=== PATIENT | male | born 1990 | race Caucasian/White ===

== ENCOUNTER 2019-05-07 22:05 | Emergency (ER) | payer SELFPAY ==
[~2019-05-07] VITALS: Ht 193 cm; Wt 97.7 kg
[2019-05-07 22:05] VITALS: BP 178/102
[~2019-05-07 22:05] MED LIST: NO HOME MEDS; [UNRECOGNIZED DRUG - OTHER] TOPICAL
[2019-05-08] MEDS ORDERED: ANEC4CRE3 TOP (22:46)
[2019-05-08] MEDS ORDERED: BACT800T5 PO (22:46)
== END 2019-05-07 23:49 | disposition left against medical advice (07) ==
LOC: M ED 22:05
DX: Z53.29 Procedure and treatment not carried out because of patient's decision for other reasons (principal)

== ENCOUNTER 2019-05-08 17:04 | Emergency (ER) | payer SELFPAY ==
[~2019-05-08] VITALS: Ht 193 cm; Wt 93.1 kg
[2019-05-08 17:04] VITALS: BP 149/94
[2019-05-08] MEDS ORDERED: ANEC4CRE3 TOP (22:46)
[2019-05-08] MEDS ORDERED: BACT800T5 PO (22:46)
== END 2019-05-08 19:10 | disposition left against medical advice (07) ==
LOC: M ED 17:04
DX: Z53.29 Procedure and treatment not carried out because of patient's decision for other reasons (principal)

== ENCOUNTER 2019-05-08 22:13 | Emergency (ER) | payer SELFPAY ==
[~2019-05-08] VITALS: Ht 193 cm; Wt 90.9 kg
[2019-05-08 22:14] VITALS: BP 131/84
[2019-05-08] MEDS ORDERED: BACTRIM 160MG/800MG DS TAB PO ONE (22:45)
[2019-05-08] MEDS ORDERED: BACT800T5 PO (22:46)
[2019-05-08] MEDS ORDERED: ANEC4CRE3 TOP (22:46)
[2019-05-08 22:58] LABS: BASO % 0.1 % (0.0-1.0); EOS # 0.1 10^3/uL (0.0-0.5); HEMATOCRIT 44.5 % (42.0-52.0); HEMOGLOBIN 15.4 g/dl (13.5-17.5); LYMPH # 1.1 10^3/uL (1.5-5.0); LYMPH % 7.4 % (24.0-44.0); MEAN CORPUSCULAR HEMOGLOBIN 30.1 pg (27.0-33.0); MEAN CORPUSCULAR HGB CONC 34.6 g/dl (32.0-36.5); MEAN CORPUSCULAR VOLUME 87.1 fl (80.0-96.0); MONO # 1.4 10^3/uL (0.0-0.8); MONO % 10.1 % (0.0-5.0); NEUTROPHILS # 11.5 10^3/uL (1.5-8.5); PLATELET COUNT, AUTOMATED 235 10^3/uL (150-450); RED BLOOD COUNT 5.11 10^6/uL (4.30-6.10); WHITE BLOOD COUNT 14.2 10^3/uL (4.0-10.0)
[2019-05-08 23:31] LABS: ERYTHROCYTE SEDIMENTATION RATE 27 mm/hr (0-15)
== END 2019-05-08 23:17 | disposition home or self-care (01) ==
LOC: M ED 22:13
DX: L03.115 Cellulitis of right lower limb (principal); L03.317 Cellulitis of buttock; Z88.5 Allergy status to narcotic agent; F11.20 Opioid dependence, uncomplicated; F17.210 Nicotine dependence, cigarettes, uncomplicated

== ENCOUNTER 2019-06-01 12:02 | Emergency (ER) | payer MEDICAID, SELFPAY ==
[~2019-06-01] VITALS: Ht 193 cm; Wt 99.1 kg
[~2019-06-01 12:02] MED LIST changes: +ANEC4CRE3 TOP; +BACT800T5 PO
[2019-06-01] MEDS ORDERED: PERC5TAB12 (12:10)
[2019-06-01] MEDS ORDERED: CLIN300C5 (12:10)
[2019-06-01] MEDS ORDERED: IBUP200T45 PO (13:02)
[2019-06-01] MEDS ORDERED: CLINDAMYCIN 900 MG in IV 1 EA IV ONE (13:15)
[2019-06-01 13:42] LABS: HEMATOCRIT 41.5 % (42.0-52.0); HEMOGLOBIN 13.9 g/dl (13.5-17.5); MEAN CORPUSCULAR HEMOGLOBIN 30.2 pg (27.0-33.0); MEAN CORPUSCULAR HGB CONC 33.5 g/dl (32.0-36.5); MEAN CORPUSCULAR VOLUME 90.2 fl (80.0-96.0); PLATELET COUNT, AUTOMATED 235 10^3/uL (150-450)
[2019-06-01 13:59] LABS: BLOOD UREA NITROGEN 11 MG/DL (7-18); CALCIUM LEVEL 8.4 MG/DL (8.5-10.1); CARBON DIOXIDE LEVEL 23 MEQ/L (21-32); CHLORIDE LEVEL 108 MEQ/L (98-107); CREATININE FOR GFR 0.85 MG/DL (0.70-1.30); GLOMERULAR FILTRATION RATE > 60.0 (>60); GLUCOSE, FASTING 100 MG/DL (70-100); POTASSIUM SERUM 3.9 MEQ/L (3.5-5.1); SODIUM LEVEL 139 MEQ/L (136-145)
[2019-06-01 14:17] VITALS: BP 141/85
== END 2019-06-01 14:38 | disposition home or self-care (01) ==
LOC: M ED 12:02
DX: L03.211 Cellulitis of face (principal); Z86.14 Personal history of Methicillin resistant Staphylococcus aureus infection; Z88.5 Allergy status to narcotic agent; F17.210 Nicotine dependence, cigarettes, uncomplicated

== ENCOUNTER 2019-07-13 17:41 | Emergency (ER) | payer MEDICAID ==
[~2019-07-13] VITALS: Ht 193 cm; Wt 89.4 kg
[~2019-07-13 17:41] MED LIST changes: +CLIN300C5; +IBUP200T45 PO; +PERC5TAB12
[2019-07-13 17:43] VITALS: BP 148/87
== END 2019-07-13 21:05 | disposition left against medical advice (07) ==
LOC: M ED 17:41
DX: Z53.21 Procedure and treatment not carried out due to patient leaving prior to being seen by health care provider (principal)

== ENCOUNTER 2019-07-30 23:37 | Emergency (ER) | payer MEDICAID ==
[~2019-07-30] VITALS: Ht 193 cm; Wt 100.0 kg
[2019-07-31] MEDS ORDERED: CLINDAMYCIN 600 MG in IV 1 EA IV ONE (00:30)
[2019-07-31] MEDS ORDERED: VANCOMYCIN HCL 1,000 MG in IV FLUID PLACE HOLDER 1 EA IV ONE (00:30)
[2019-07-31] MEDS ORDERED: NS 1,000 ML IV ONE (00:30)
[2019-07-31 00:49] LABS: BASO % 0.2 % (0.0-1.0); EOS # 0.1 10^3/uL (0.0-0.5); EOS % 0.5 % (0.0-3.0); HEMATOCRIT 39.4 % (42.0-52.0); HEMOGLOBIN 14.1 g/dl (13.5-17.5); LYMPH # 1.7 10^3/uL (1.5-5.0); LYMPH % 11.1 % (24.0-44.0); MEAN CORPUSCULAR HEMOGLOBIN 30.9 pg (27.0-33.0); MEAN CORPUSCULAR HGB CONC 35.8 g/dl (32.0-36.5); MEAN CORPUSCULAR VOLUME 86.2 fl (80.0-96.0); MONO # 1.1 10^3/uL (0.0-0.8); MONO % 6.9 % (0.0-5.0); NEUTROPHILS # 12.6 10^3/uL (1.5-8.5); PLATELET COUNT, AUTOMATED 344 10^3/uL (150-450); RED BLOOD COUNT 4.57 10^6/uL (4.30-6.10); WHITE BLOOD COUNT 15.5 10^3/uL (4.0-10.0)
[2019-07-31] MEDS ORDERED: VANCOMYCIN HCL 1,000 MG, VIAL MATE ADAPTER 1 EACH in D5W 250 ML IV ONE (01:00)
[2019-07-31 01:18] LABS: ERYTHROCYTE SEDIMENTATION RATE 27 mm/hr (0-15)
[2019-07-31] MEDS ORDERED: BACT800T5 PO (01:26)
[2019-07-31 02:17] VITALS: BP 150/93
== END 2019-07-31 02:24 | disposition home or self-care (01) ==
LOC: M ED 23:37
DX: F11.10 Opioid abuse, uncomplicated (principal); B95.62 Methicillin resistant Staphylococcus aureus infection as the cause of diseases classified elsewhere; Z88.5 Allergy status to narcotic agent; F17.210 Nicotine dependence, cigarettes, uncomplicated
CPT/HCPCS: 80047; 83605; 85025; 85652; 86140; 87040; 96365; 96367; 99284; J3370

== ENCOUNTER 2019-08-28 23:41 | Emergency (ER) | payer OTHER ==
[~2019-08-28] VITALS: Ht 193 cm; Wt 89.2 kg
[2019-08-29] MEDS ORDERED: KETOROLAC 30 MG/ML 1ML VIAL (J1885 PER 15MG) IV ONE (00:30)
[2019-08-29 00:47] LABS: BASO % 0.3 % (0.0-1.0); EOS # 0.1 10^3/uL (0.0-0.5); HEMATOCRIT 37.3 % (42.0-52.0); HEMOGLOBIN 13.3 g/dl (13.5-17.5); LYMPH % 15.1 % (24.0-44.0); MEAN CORPUSCULAR HEMOGLOBIN 31.1 pg (27.0-33.0); MEAN CORPUSCULAR HGB CONC 35.7 g/dl (32.0-36.5); MEAN CORPUSCULAR VOLUME 87.1 fl (80.0-96.0); MONO # 1.1 10^3/uL (0.0-0.8); MONO % 8.4 % (0.0-5.0); NEUTROPHILS # 10.1 10^3/uL (1.5-8.5); NEUTROPHILS % 74.9 % (36.0-66.0); PLATELET COUNT, AUTOMATED 250 10^3/uL (150-450); RED BLOOD COUNT 4.28 10^6/uL (4.30-6.10); WHITE BLOOD COUNT 13.5 10^3/uL (4.0-10.0)
[2019-08-29 01:17] LABS: ALBUMIN 3.5 GM/DL (3.2-5.2); ALT/SGPT 84 U/L (12-78); BILIRUBIN,DIRECT 0.2 MG/DL (0.0-0.2); BILIRUBIN,TOTAL 0.6 MG/DL (0.2-1.0); BLOOD UREA NITROGEN 18 MG/DL (7-18); CALCIUM LEVEL 8.5 MG/DL (8.5-10.1); CARBON DIOXIDE LEVEL 28 MEQ/L (21-32); CHLORIDE LEVEL 100 MEQ/L (98-107); CK-MB VALUE MASS 1.8 NG/ML (<3.6); CPK CREATINE PHOSPHOKINASE 83 U/L (39-308); CREATININE FOR GFR 0.79 MG/DL (0.70-1.30); GLOMERULAR FILTRATION RATE > 60.0 (>60); GLUCOSE, FASTING 154 MG/DL (70-100); LIPASE 33 U/L (73-393); MB/CK RELATIVE INDEX 2.17 (< OR =4); POTASSIUM SERUM 3.8 MEQ/L (3.5-5.1); SODIUM LEVEL 134 MEQ/L (136-145); TOTAL PROTEIN 7.5 GM/DL (6.4-8.2); TROPONIN I < 0.02 NG/ML (< 0.10)
[2019-08-29 01:18] LABS: ERYTHROCYTE SEDIMENTATION RATE 38 mm/hr (0-15)
[2019-08-29 01:29] LABS: INR 1.19; PARTIAL THROMBOPLASTIN TIME 33.4 SECONDS (25.0-38.4); PROTHROMBIN TIME 14.8 SECONDS (11.8-14.0)
[2019-08-29 01:32] LABS: D-DIMER QUANT 1296.68 ng/ml (<500)
--- NOTE | 2019-08-29 01:51 | REP ---
Clinical: Acute chest pain . Comparison: None . Findings: The mediastinum and cardiac silhouette are stable and within normal limits for portable technique. The lung frye are clear without acute consolidation, effusion, or pneumothorax. Skeletal structures are intact. Impression: No acute cardiopulmonary process appreciated. Electronically Signed by Bossman Vera MD 08/29/2019 01:42 A
[2019-08-29] MEDS ORDERED: ISOVUE-370 76% 100ML VIAL (Q9967) As Ordered ONE (02:27)
--- NOTE | 2019-08-29 03:01 | REPVR ---
PROCEDURE INFORMATION: Exam: CT Angiography Chest With Contrast Exam date and time: 08/29/2019 1:39 AM Age: 29 years old Clinical indication: Shortness of breath; Additional info: Sob/cp TECHNIQUE: Imaging protocol: Computed tomographic angiography of the chest with intravenous contrast. 3D rendering: MIP and/or 3D reconstructed images were created by the technologist. Radiation optimization: All CT scans at this facility use at least one of these dose optimization techniques: automated exposure control; mA and/or kV adjustment per patient size (includes targeted exams where dose is matched to clinical indication); or iterative reconstruction. Contrast material: ISO; Contrast volume: 75 ml; Contrast route: AC; COMPARISON: CR PORTABLE CHEST X-RAY 08/29/2019 12:37 AM FINDINGS: Pulmonary arteries: No central pulmonary embolism is seen. Evaluation of peripheral pulmonary arteries is limited due to excessive motion. Aorta: Unremarkable. No aortic aneurysm. No aortic dissection. Lungs: Unremarkable. No consolidation. No masses. Pleural space: Small right pleural effusion. Heart: Unremarkable. No cardiomegaly. No pericardial effusion. Lymph nodes: Unremarkable. No enlarged lymph nodes. Bones/joints: Unremarkable. No acute fracture. Soft tissues: Unremarkable. IMPRESSION: 1. No central pulmonary embolism is seen. Evaluation of peripheral pulmonary arteries is limited due to excessive motion. 2. Small right pleural effusion. Electronically signed by: Bhanu Chapman On 08/29/2019 03:00:50 AM
[2019-08-29 03:53] VITALS: BP 109/79
--- NOTE | 2019-08-30 03:19 | ECGEPIP ---
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
== END 2019-08-29 04:03 | disposition home or self-care (01) ==
LOC: M ED 23:41
DX: J06.9 Acute upper respiratory infection, unspecified (principal); B34.8 Other viral infections of unspecified site; F17.218 Nicotine dependence, cigarettes, with other nicotine-induced disorders; R05 Cough; R50.9 Fever, unspecified; Z88.5 Allergy status to narcotic agent
CPT/HCPCS: 71045; 71275; 80048; 80076; 82550; 82553; 83605; 83690; 85025; 85379; 85610; 85652; 85730; 86140; 87040; 87486; 87581; 87633; 87798; 93005; 93041; 94760; 96372; 99285; J1885; Q9967

== ENCOUNTER 2019-09-02 16:43 | Emergency (ER) | payer OTHER ==
[~2019-09-02] VITALS: Ht 193 cm; Wt 90.9 kg
[2019-09-02] MEDS ORDERED: NS 1,000 ML IV ONE (17:15)
[2019-09-02] MEDS ORDERED: KETOROLAC 30 MG/ML 1ML VIAL IV ONE (17:30)
[2019-09-02 17:51] LABS: BASO % 0.3 % (0.0-1.0); EOS # 0.1 10^3/uL (0.0-0.5); EOS % 0.6 % (0.0-3.0); HEMATOCRIT 36.4 % (42.0-52.0); HEMOGLOBIN 12.9 g/dl (13.5-17.5); LYMPH # 1.9 10^3/uL (1.5-5.0); LYMPH % 13.8 % (24.0-44.0); MEAN CORPUSCULAR HEMOGLOBIN 30.2 pg (27.0-33.0); MEAN CORPUSCULAR HGB CONC 35.4 g/dl (32.0-36.5); MEAN CORPUSCULAR VOLUME 85.2 fl (80.0-96.0); MONO # 1.1 10^3/uL (0.0-0.8); MONO % 8.3 % (0.0-5.0); NEUTROPHILS # 10.4 10^3/uL (1.5-8.5); NEUTROPHILS % 76.6 % (36.0-66.0); PLATELET COUNT, AUTOMATED 290 10^3/uL (150-450); RED BLOOD COUNT 4.27 10^6/uL (4.30-6.10); WHITE BLOOD COUNT 13.6 10^3/uL (4.0-10.0)
[2019-09-02 18:08] LABS: ERYTHROCYTE SEDIMENTATION RATE 55 mm/hr (0-15)
[2019-09-02 18:20] LABS: ALBUMIN 3.2 GM/DL (3.2-5.2); ALT/SGPT 64 U/L (12-78); BILIRUBIN,TOTAL 0.6 MG/DL (0.2-1.0); BLOOD UREA NITROGEN 16 MG/DL (7-18); CALCIUM LEVEL 8.4 MG/DL (8.5-10.1); CARBON DIOXIDE LEVEL 29 MEQ/L (21-32); CHLORIDE LEVEL 101 MEQ/L (98-107); CK-MB VALUE MASS 2.1 NG/ML (<3.6); CPK CREATINE PHOSPHOKINASE 97 U/L (39-308); GLOMERULAR FILTRATION RATE > 60.0 (>60); GLUCOSE, FASTING 100 MG/DL (70-100); MB/CK RELATIVE INDEX 2.16 (< OR =4); POTASSIUM SERUM 4.1 MEQ/L (3.5-5.1); SODIUM LEVEL 136 MEQ/L (136-145); TOTAL PROTEIN 7.7 GM/DL (6.4-8.2); TROPONIN I < 0.02 NG/ML (< 0.10)
[2019-09-02 19:45] VITALS: BP 133/76
[2019-09-02 20:35] LABS: AMPHETAMINES LEVEL URINE POSITIVE (NEGATIVE); BARBITURATES URINE NEGATIVE (NEGATIVE); BENZODIAZEPINES URINE NEGATIVE (NEGATIVE); CANNABINOIDS URINE POSITIVE (NEGATIVE); COCAINE METABOLITE URINE NEGATIVE (NEGATIVE); METHADONE URINE NEGATIVE (NEGATIVE); OPIATES URINE POSITIVE (NEGATIVE); PHENCYCLIDINE URINE NEGATIVE (NEGATIVE)
--- NOTE | 2019-09-03 07:38 | REP ---
CHEST, SINGLE VIEW: There is no evidence of acute infiltrate. No pleural effusion is seen. The heart is normal in size. The mediastinal silhouette is unremarkable. The visualized osseous structures are intact. IMPRESSION: No acute pulmonary disease. Electronically Signed by Jean-Paul Potts MD 09/03/2019 05:12 P
--- NOTE | 2019-09-03 07:50 | ECHO ---
DATE OF STUDY: 09/02/2019 DATE OF : 1990 AGE: 29 REFERRING PROVIDER: Romana Augustine PATIENT LOCATION: Emergency room. CLINICAL INDICATION: Chest pain. 2-D MEASUREMENTS: LA: 3.3 cm Aorta: 3.3 cm IVS: 1.1 cm LVPW: 1.1 cm LV: 5.4 cm IVC: 3.0 cm DOPPLER MEASUREMENTS: Peak velocity across the aortic valve: 1.4 m/s Peak velocity across the LVOT: 1.0 m/s Mitral E: 0.8 Mitral A: 0.6 Ratio: 1.4 Maximum tricuspid valve velocity: 2.6 m/s 2-D COMMENTS: 1. Normal left ventricular size, wall thickness, and normal global left ventricular systolic function with a hyperdynamic left ventricle. The estimated global left ventricular systolic ejection fraction is 60-65%. 2. Normal left atrium. Normal right atrium and right ventricle. 3. The atrial septum appeared to be normal without evidence of defect or shunt. 4. Normal aortic root. 5. No pericardial effusion seen. 6. Minimally calcified aortic valve with normal leaflet excursion. Normal mitral valve, tricuspid valve, and pulmonic valve. The proximal pulmonary artery branches were not well visualized. 7. The inferior vena cava was dilated, central venous pressure might be elevated. DOPPLER: It detects trace aortic regurgitation, trace mitral regurgitation, trace to mild tricuspid regurgitation, and trace pulmonic regurgitation. The calculated pulmonary artery systolic pressure varies between 30-40 mmHg. Assessment of the left ventricular systolic function was normal. IMPRESSION: 1. Normal global left ventricular systolic function with a hyperdynamic left ventricle. Assessment of the left ventricular diastolic function was normal. 2. Aortic valve sclerosis with trace aortic regurgitation, but no aortic stenosis. 3. Trace mitral regurgitation. 4. Trace to mild tricuspid regurgitation with probably mild pulmonary hypertension. 5. Trace pulmonic regurgitation. 6. The inferior vena cava was dilated, central venous pressure might be elevated.
--- NOTE | 2019-09-03 10:07 | ECGEPIP ---
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
== END 2019-09-02 21:30 | disposition home or self-care (01) ==
LOC: M ED 16:43
DX: R07.89 Other chest pain (principal); R00.0 Tachycardia, unspecified; F11.120 Opioid abuse with intoxication, uncomplicated; F15.10 Other stimulant abuse, uncomplicated; F12.11 Cannabis abuse, in remission; F17.218 Nicotine dependence, cigarettes, with other nicotine-induced disorders; Z88.5 Allergy status to narcotic agent; Z86.14 Personal history of Methicillin resistant Staphylococcus aureus infection
CPT/HCPCS: 71045; 80053; 80307; 82550; 82553; 85025; 85652; 87040; 93005; 93041; 93306; 94760; 96361; 96374; 99285; J1885

== ENCOUNTER 2019-09-05 00:41 | Emergency (ER) | payer OTHER ==
[2019-09-05] MEDS ORDERED: ceFAZolin 1GM VIAL (J0690 PER 500MG) IM ONE (01:15)
[2019-09-05] MEDS ORDERED: BACTRIM 160MG/800MG DS TAB PO ONE (01:15)
[2019-09-05] MEDS ORDERED: BACT800T5 PO (01:17)
[2019-09-05] MEDS ORDERED: AUGM500T34 PO (01:17)
[2019-09-05 01:56] VITALS: BP 153/99
[2019-09-05] MEDS ORDERED: ACETAMINOPHEN TAB 650MG DOSE (2X325MG) As Ordered ONE (09:39)
[2019-09-05] MEDS ORDERED: ACETAMINOPHEN TAB 650MG DOSE (2X325MG) PO ONE (09:45)
== END 2019-09-05 10:32 | disposition home or self-care (01) ==
LOC: EDBD 00:41 → M ED 00:41
DX: L08.9 Local infection of the skin and subcutaneous tissue, unspecified (principal); B18.2 Chronic viral hepatitis C; F11.10 Opioid abuse, uncomplicated; Z88.5 Allergy status to narcotic agent
CPT/HCPCS: 96372; 99284; J0690

== ENCOUNTER 2019-12-06 20:00 | Inpatient (IN) | payer OTHER ==
[~2019-12-06 20:00] MED LIST changes: +AUGM500T34 PO
[2019-12-06] MEDS ORDERED: CEFEPIME 2GM VIAL (MAXIPIME) (J0692 PER 500MG) ONE (20:27)
[2019-12-06] MEDS ORDERED: ACETAMINOPHEN TAB 650MG DOSE (2X325MG) ONE (20:27)
[2019-12-06] MEDS ORDERED: IBUPROFEN 600MG TAB ONE (20:27)
[2019-12-06] MEDS ORDERED: CEFEPIME 2GM VIAL (MAXIPIME) (J0692 PER 500MG) As Ordered ONE (21:27)
[2019-12-06] MEDS ORDERED: ACETAMINOPHEN TAB 650MG DOSE (2X325MG) As Ordered ONE (21:28)
[2019-12-06] MEDS ORDERED: IBUPROFEN 600MG TAB As Ordered ONE (21:28)
[2019-12-07] MEDS ORDERED: NALOXONE INJ 0.4MG/1ML VIAL (J2310 PER 1MG) As Ordered ONE ×2 (10:44→10:49)
[2019-12-07] MEDS ORDERED: NALOXONE INJ 0.4MG/1ML VIAL (J2310 PER 1MG) ONE (10:44)
[2019-12-07] MEDS ORDERED: ONDANSETRON 4MG/2ML VIAL As Ordered ONE (13:04)
[2019-12-07] MEDS ORDERED: ONDANSETRON 4MG/2ML VIAL ONE (13:04)
[2019-12-07] MEDS ORDERED: ENOXAPARIN 40MG/0.4ML SYRINGE (J1650 PER 10MG) As Ordered ONE (13:04)
[2019-12-07] MEDS ORDERED: cefTRIAXone SOD 1GM VIAL (J0696 PER 250MG) ONE (13:04)
[2019-12-07] MEDS ORDERED: ACETAMINOPHEN 650MG ER TAB (TYLENOL ARTHRITIS) ONE (13:04)
[2019-12-07] MEDS ORDERED: cefTRIAXone SOD 1GM VIAL (J0696 PER 250MG) As Ordered ONE (13:04)
[2019-12-07] MEDS ORDERED: ACETAMINOPHEN 650MG ER TAB (TYLENOL ARTHRITIS) As Ordered ONE (13:04)
[2019-12-07] MEDS ORDERED: ENOXAPARIN 40MG/0.4ML SYRINGE (J1650 PER 10MG) ONE (13:04)
[2019-12-07] MEDS ORDERED: VANCOMYCIN 750MG/25ML VIAL ONE (14:32)
[2019-12-07] MEDS ORDERED: VANCOMYCIN 750MG/25ML VIAL As Ordered ONE (14:32)
[2019-12-07] MEDS ORDERED: VANCOMYCIN 1000MG/20ML VIAL As Ordered ONE (14:32)
[2019-12-07] MEDS ORDERED: VANCOMYCIN 1000MG/20ML VIAL ONE (14:32)
== END 2019-12-07 14:45 | disposition left against medical advice (07) | DRG 720 ==
LOC: M ED 20:00 → M MSPAV 12-07 04:46 → M ED 12-07 20:00
PROVIDERS: ADMIT General Practice; ATTEND General Practice
DX: A41.9 Sepsis, unspecified organism (principal); L03.115 Cellulitis of right lower limb; L03.116 Cellulitis of left lower limb; F10.10 Alcohol abuse, uncomplicated; F11.10 Opioid abuse, uncomplicated; F17.200 Nicotine dependence, unspecified, uncomplicated; G92 Toxic encephalopathy

== ENCOUNTER 2020-01-01 22:22 | Inpatient (IN) | payer OTHER ==
[~2020-01-01] VITALS: Ht 193 cm; Wt 93.2 kg
[2020-01-01 23:16] LABS: BASO % 0.2 % (0.0-1.0); EOS % 0.1 % (0.0-3.0); HEMATOCRIT 38.9 % (42.0-52.0); HEMOGLOBIN 14.3 g/dl (13.5-17.5); LYMPH # 0.3 10^3/uL (1.5-5.0); LYMPH % 2.1 % (24.0-44.0); MEAN CORPUSCULAR HGB CONC 36.8 g/dl (32.0-36.5); MEAN CORPUSCULAR VOLUME 81.6 fl (80.0-96.0); MONO # 0.1 10^3/uL (0.0-0.8); MONO % 0.8 % (0.0-5.0); NEUTROPHILS # 13.1 10^3/uL (1.5-8.5); NEUTROPHILS % 96.4 % (36.0-66.0); PLATELET COUNT, AUTOMATED 183 10^3/uL (150-450); RED BLOOD COUNT 4.77 10^6/uL (4.30-6.10); WHITE BLOOD COUNT 13.6 10^3/uL (4.0-10.0)
[2020-01-02] MEDS ORDERED: ACETAMINOPHEN TAB 650MG DOSE (2X325MG) PO ONE
[2020-01-02 00:18] LABS: INR 1.21; PROTHROMBIN TIME 15.6 SECONDS (11.8-14.0)
--- NOTE | 2020-01-02 00:22 | REPVR ---
PROCEDURE INFORMATION: Exam: XR Chest, 1 View Exam date and time: 01/01/2020 11:06 PM Age: 29 years old Clinical indication: Fever and shortness of breath TECHNIQUE: Imaging protocol: XR of the chest Views: 1 view. COMPARISON: 1. CT PORTABLE CHEST X-RAY 09/02/2019 5:[address] ANGIO CHEST 08/29/2019 2:35:40 AM FINDINGS: Lungs: Unremarkable. No consolidation. No pulmonary edema. Pleural space: Unremarkable. No pleural effusion or pneumothorax is identified. Heart/Mediastinum: Unremarkable. No cardiomegaly. Bones/joints: Unremarkable. IMPRESSION: No acute findings. Electronically signed by: Saqib Dobson On 01/02/2020 00:23:09 AM
[2020-01-02 00:31] LABS: ALBUMIN 3.4 GM/DL (3.2-5.2); ALT/SGPT 103 U/L (12-78); BILIRUBIN,DIRECT 0.3 MG/DL (0.0-0.2); BILIRUBIN,TOTAL 0.7 MG/DL (0.2-1.0); BLOOD UREA NITROGEN 13 MG/DL (7-18); C REACTIVE PROTEIN QUANTITATIV 1.11 MG/DL (0.00-0.30); CALCIUM LEVEL 8.7 MG/DL (8.5-10.1); CARBON DIOXIDE LEVEL 28 MEQ/L (21-32); CHLORIDE LEVEL 103 MEQ/L (98-107); CK-MB VALUE MASS < 1.0 NG/ML (<3.6); CPK CREATINE PHOSPHOKINASE 70 U/L (39-308); CREATININE FOR GFR 0.87 MG/DL (0.70-1.30); GLOMERULAR FILTRATION RATE > 60.0 (>60); GLUCOSE, FASTING 117 MG/DL (70-100); MB/CK RELATIVE INDEX 1.43 (< OR =4); POTASSIUM SERUM 2.7 MEQ/L (3.5-5.1); SODIUM LEVEL 139 MEQ/L (136-145); TOTAL PROTEIN 7.6 GM/DL (6.4-8.2); TROPONIN I < 0.02 NG/ML (< 0.10)
[2020-01-02] MEDS ORDERED: KCL 10MEQ/100ML SWI (KRUN) 10 MEQ in IV 1 EA IV ONE (00:45)
[2020-01-02] MEDS ORDERED: POTASSIUM CHLORIDE 10 MEQ SR TABLET PO ONE (00:45)
[2020-01-02] MEDS ORDERED: VANCOMYCIN HCL 1,000 MG, VIAL MATE ADAPTER 1 EACH in D5W 250 ML IV ONE (02:45)
[2020-01-02] MEDS ORDERED: PIPERACILLIN/TAZOBACTAM SOD 4.5 GM in D5W MINI-BAG PLUS 50 ML IV ONE (02:45)
[2020-01-02] MEDS: NS 1,000 ML IV SCH ×2 (03:00→08:32)
[2020-01-02] MEDS ORDERED: NS 1,000 ML IV ONE ×2 (03:00)
[2020-01-02 03:47] LABS: AMPHETAMINES LEVEL URINE POSITIVE (NEGATIVE); BARBITURATES URINE NEGATIVE (NEGATIVE); BENZODIAZEPINES URINE NEGATIVE (NEGATIVE); CANNABINOIDS URINE NEGATIVE (NEGATIVE); COCAINE METABOLITE URINE NEGATIVE (NEGATIVE); METHADONE URINE POSITIVE (NEGATIVE); OPIATES URINE POSITIVE (NEGATIVE); PHENCYCLIDINE URINE NEGATIVE (NEGATIVE)
[2020-01-02] MEDS: ACETAMINOPHEN TAB 650MG DOSE (2X325MG) PO PRN ×2 (08:04→15:25)
[2020-01-02] MEDS: KETOROLAC 30 MG/ML 1ML VIAL IV PRN ×2 (08:04→16:44)
[2020-01-02] MEDS: VANCOMYCIN HCL 1,000 MG, VIAL MATE ADAPTER 1 EACH in D5W 250 ML IV SCH ×2 (08:33→16:32)
[2020-01-02] MEDS ORDERED: BUPRENORPHINE/NALOXONE 8-2MG SUBLINGUAL TABLET(SUBOXONE) SL ONE (09:15)
[2020-01-02] MEDS ORDERED: PILL CUTTER 1 EACH XX ONE (09:21)
[2020-01-02] MEDS: ONDANSETRON 4 MG TAB PO PRN (09:23)
[2020-01-02 10:17] LABS: BASO % 0.2 % (0.0-1.0); EOS % 0.1 % (0.0-3.0); HEMATOCRIT 39.1 % (42.0-52.0); HEMOGLOBIN 13.6 g/dl (13.5-17.5); LYMPH # 0.3 10^3/uL (1.5-5.0); MEAN CORPUSCULAR HEMOGLOBIN 28.9 pg (27.0-33.0); MEAN CORPUSCULAR HGB CONC 34.8 g/dl (32.0-36.5); MEAN CORPUSCULAR VOLUME 83.2 fl (80.0-96.0); MONO # 0.6 10^3/uL (0.0-0.8); MONO % 4.1 % (0.0-5.0); NEUTROPHILS # 14.5 10^3/uL (1.5-8.5); NEUTROPHILS % 93.3 % (36.0-66.0); PLATELET COUNT, AUTOMATED 151 10^3/uL (150-450); WHITE BLOOD COUNT 15.5 10^3/uL (4.0-10.0)
[2020-01-02 10:36] LABS: MAGNESIUM LEVEL 1.6 MG/DL (1.8-2.4)
[2020-01-02 10:42] LABS: BLOOD UREA NITROGEN 13 MG/DL (7-18); C REACTIVE PROTEIN QUANTITATIV 6.42 MG/DL (0.00-0.30); CALCIUM LEVEL 8.2 MG/DL (8.5-10.1); CARBON DIOXIDE LEVEL 27 MEQ/L (21-32); CHLORIDE LEVEL 105 MEQ/L (98-107); CREATININE FOR GFR 0.87 MG/DL (0.70-1.30); GLOMERULAR FILTRATION RATE > 60.0 (>60); GLUCOSE, FASTING 132 MG/DL (70-100); POTASSIUM SERUM 3.5 MEQ/L (3.5-5.1); SODIUM LEVEL 137 MEQ/L (136-145)
[2020-01-02 11:03] LABS: ERYTHROCYTE SEDIMENTATION RATE 29 mm/hr (0-15)
[2020-01-02 11:47] LABS: MONO SCRN NEGATIVE (NEGATIVE)
[2020-01-02 11:48] LABS: HEPATITIS B SURFACE ANTIGEN NEGATIVE (NEGATIVE)
[2020-01-02 12:12] LABS: HEPATITIS A ANTIBODY IGM NEGATIVE (NEGATIVE); HEPATITIS B CORE ANTIBODY IGM NEGATIVE (NEGATIVE); HIV 1&2 SCREEN CENTAUR NEGATIVE (NEGATIVE)
[2020-01-02 13:00] LABS: HEPATITIS C VIRUS ABY INDEX > 11.0 INDEX (<0.8)
[2020-01-02 15:36] VITALS: BP 140/96
[2020-01-02 22:00] VITALS: BP 160/96
[2020-01-03] MEDS: VANCOMYCIN HCL 1,000 MG, VIAL MATE ADAPTER 1 EACH in D5W 250 ML IV SCH ×4 (00:07→17:52)
[2020-01-03] MEDS: KETOROLAC 30 MG/ML 1ML VIAL IV PRN ×3 (00:19→17:52)
[2020-01-03 06:00] VITALS: BP 133/91
[2020-01-03 06:53] LABS: HEMATOCRIT 38.9 % (42.0-52.0); HEMOGLOBIN 13.8 g/dl (13.5-17.5); MEAN CORPUSCULAR HEMOGLOBIN 29.6 pg (27.0-33.0); MEAN CORPUSCULAR HGB CONC 35.5 g/dl (32.0-36.5); MEAN CORPUSCULAR VOLUME 83.3 fl (80.0-96.0); PLATELET COUNT, AUTOMATED 157 10^3/uL (150-450); RED BLOOD COUNT 4.67 10^6/uL (4.30-6.10); WHITE BLOOD COUNT 8.4 10^3/uL (4.0-10.0)
[2020-01-03 07:13] LABS: ALT/SGPT 70 U/L (12-78); BILIRUBIN,DIRECT 0.3 MG/DL (0.0-0.2); BILIRUBIN,TOTAL 0.7 MG/DL (0.2-1.0); BLOOD UREA NITROGEN 14 MG/DL (7-18); CALCIUM LEVEL 8.4 MG/DL (8.5-10.1); CARBON DIOXIDE LEVEL 27 MEQ/L (21-32); CHLORIDE LEVEL 104 MEQ/L (98-107); CREATININE FOR GFR 0.62 MG/DL (0.70-1.30); GLOMERULAR FILTRATION RATE > 60.0 (>60); GLUCOSE, FASTING 109 MG/DL (70-100); POTASSIUM SERUM 3.8 MEQ/L (3.5-5.1); SODIUM LEVEL 136 MEQ/L (136-145); TOTAL PROTEIN 7.2 GM/DL (6.4-8.2)
[2020-01-03] MEDS: BUPRENORPHINE/NALOXONE 2-0.5MG SUBLINGUAL TABLET(SUBOXONE) SL SCH (08:13)
[2020-01-03 08:25] LABS: ERYTHROCYTE SEDIMENTATION RATE 40 mm/hr (0-15)
[2020-01-03 08:43] LABS: ATYPICAL LYMPH 2 % (0-5); LYMPHOCYTES 6 % (16-44); MONOCYTES 6 % (0-5); NEUTROPHILS 86 % (28-66); PLATELET ESTIMATE NORMAL (NORMAL)
[2020-01-03] MEDS: MICAFUNGIN SODIUM 100 MG in D5W MINI-BAG PLUS 100 ML IV SCH (09:55)
--- NOTE | 2020-01-03 12:20 | IPNPDOC ---
Subjective Date Seen The patient was seen on 01/03/20. Subjective Chief Complaint/HPI pt sleepy but no withdrawl symptoms today, Offers no new complaints General: Denies: ROS Unobtainable, Chills, Night Sweats, Fatigue, Malaise, Normal Appetite, Other Symptoms Constitutional: Denies: Chills, Fever, Malaise, Night Sweats, Weakness, Fatigue, Weight Loss, Lethargy, Other Pulmonary: Denies: Dyspnea, Cough, Pleuritic Chest Pain, Other Symptoms Cardiovascular: Denies: Chest Pain, Palpitations, Orthopnea, Paroxysmal Noc. Dyspnea, Edema, Lt Headedness, Other Symptoms Gastrointestinal: Denies: Nausea, Vomiting, Abdominal Pain, Diarrhea, Constipation, Melena, Hematochezia, Other Symptoms Genitourinary: Denies: Dysuria, Frequency, Incontinence, Hematuria, Retention, Other Symptoms Hematologic: Denies: Bruising, Bleeding Excessively, Petecchia, Purpura, Enlarged Lymph Nodes, Other Hematologic Endocrine: Denies: Polydipsia, Polyphagia, Polyuria, Heat Intolerance, Cold Intolerance, Other Endocrine Sx Musculoskeletal: Denies: Neck Pain, Back Pain, Shoulder Pain, Arm Pain, Hand Pain, Leg Pain, Foot Pain, Joint Pain, Muscle Pain, Spasms, Other Symptoms Neurological: Denies: Weakness, Numbness, Incoordination, Change in speech, Confusion, Seizures, Other Symptoms Objective Physical Examination Chest Exam: Positive: Clear to auscultation Heart Exam: Positive: Rate Normal, Normal S1, Normal S2 Abdomen Exam: Positive: Normal bowel sounds, Soft Extremity Exam: Positive: Normal pulses Skin Exam: Positive: Nl turgor and temperature, Other skin issue (multiple scabs on all over the body in different stages) Assessment /Plan Problems (1) Febrile illness, acute Status: Acute Problem Text: Hx of IVDA and homeless ness Can not R/O SABE in this setting Discussed with Dr Maldonado, he will get BARBARA tomorrow NPO from midnight Continue Zosyn/vanco Dr Ibarra not available till Wednesday Will continue same anti Bx till then Blood cultures show Funus-On mycofungin already (2) Drug abuse Status: Acute Problem Text: Discussed with Dr Kincaid, pt started on Suboxone 4mg daily to prevent withdrwal and pt leaving AMA without tratment for his possible Endocarditis. He is responding vwet well to Suboxone, will call Dr Kincaid again once pt is medically clear as per his instructions. Plan/VTE VTE Prophylaxis Ordered?: Yes VS, I&O, 24H, Fishbone Vital Signs/I&O Vital Signs Date Time Temp Pulse Resp B/P (MAP) Pulse Ox O2 Delivery O2 Flow Rate FiO2 01/03/20 06:00 98.6 74 18 133/91 (105) 100 Room Air I&O- Last 24 Hours up to 6 AM 01/03/20 05:59 Intake Total 2390 ml Output Total 3550 ml Balance -1160 ml Laboratory Data 24H LABS Laboratory Tests 2 01/02/20 22:50: Vancomycin Level Trough 7.9L 01/03/20 06:24: Neutrophils (%) (Auto) , Nucleated Red Blood Cells % (auto) 0.0, Neutrophils 86H, Lymphocytes (Manual) 6L, Monocytes (Manual) 6H, Atypical Lymphocytes 2, Red Blood Cell Morphology NORMAL, Platelet Estimate NORMAL, Erythrocyte Sedimentation Rate 40H, Anion Gap 5L, Glomerular Filtration Rate > 60.0, Calcium Level 8.4L, Magnesium Level 2.0, Total Bilirubin 0.7, Direct Bilirubin 0.3H, Aspartate Amino Transf (AST/SGOT) 51H, Alanine Aminotransferase (ALT/SGPT) 70, Alkaline Phosphatase 101, Total Protein 7.2, Albumin 3.0L, Albumin/Globulin Ratio 0.7 01/03/20 11:39: CBC/BMP Laboratory Tests 01/03/20 06:24 Microbiology Microbiology 01/03/20 Blood Culture, Received Pending 01/01/20 Respiratory Virus Panel (PCR) ([facility]) - Final, Complete 01/01/20 Blood Culture - Preliminary, Resulted 01/01/20 Blood Culture - Preliminary, Resulted DANELLE CHRISTIANSON MD Jan 03, 2020 12:19
[2020-01-03] MEDS: ONDANSETRON 4 MG TAB PO PRN ×2 (13:26→17:52)
[2020-01-03 14:00] VITALS: BP 142/90
[2020-01-03] MEDS ORDERED: VANCOMYCIN HCL 500 MG in D5W MINI-BAG PLUS 100 ML IV ONE (14:00)
[2020-01-03] MEDS: HEPARIN SOD (PORCINE) 5000UNITS/ML 1ML VIAL/SYRINGE SQ SCH ×2 (16:02→21:07)
[2020-01-03 22:00] VITALS: BP 137/56
[2020-01-03] MEDS ORDERED: ONDANSETRON 4MG/2ML VIAL IV ONE (22:45)
[2020-01-04] MEDS: VANCOMYCIN HCL 1,000 MG, VIAL MATE ADAPTER 1 EACH in D5W 250 ML IV SCH ×3 (00:06→12:20)
[2020-01-04] MEDS: KETOROLAC 30 MG/ML 1ML VIAL IV PRN ×2 (00:07→06:30)
[2020-01-04 05:57] LABS: BASO % 0.4 % (0.0-1.0); EOS # 0.2 10^3/uL (0.0-0.5); EOS % 2.6 % (0.0-3.0); HEMATOCRIT 40.8 % (42.0-52.0); HEMOGLOBIN 14.4 g/dl (13.5-17.5); LYMPH # 1.2 10^3/uL (1.5-5.0); LYMPH % 16.5 % (24.0-44.0); MEAN CORPUSCULAR HEMOGLOBIN 29.3 pg (27.0-33.0); MEAN CORPUSCULAR HGB CONC 35.3 g/dl (32.0-36.5); MEAN CORPUSCULAR VOLUME 83.1 fl (80.0-96.0); MONO # 0.9 10^3/uL (0.0-0.8); MONO % 11.6 % (0.0-5.0); NEUTROPHILS # 5.1 10^3/uL (1.5-8.5); NEUTROPHILS % 68.8 % (36.0-66.0); PLATELET COUNT, AUTOMATED 206 10^3/uL (150-450); RED BLOOD COUNT 4.91 10^6/uL (4.30-6.10); WHITE BLOOD COUNT 7.4 10^3/uL (4.0-10.0)
[2020-01-04 06:00] VITALS: BP 131/87
[2020-01-04] MEDS: HEPARIN SOD (PORCINE) 5000UNITS/ML 1ML VIAL/SYRINGE SQ SCH ×2 (06:00→12:20)
[2020-01-04 06:12] LABS: ALBUMIN 3.1 GM/DL (3.2-5.2); ALT/SGPT 75 U/L (12-78); BILIRUBIN,DIRECT 0.2 MG/DL (0.0-0.2); BILIRUBIN,TOTAL 0.5 MG/DL (0.2-1.0); BLOOD UREA NITROGEN 12 MG/DL (7-18); CALCIUM LEVEL 8.7 MG/DL (8.5-10.1); CARBON DIOXIDE LEVEL 28 MEQ/L (21-32); CHLORIDE LEVEL 105 MEQ/L (98-107); CREATININE FOR GFR 0.65 MG/DL (0.70-1.30); GLOMERULAR FILTRATION RATE > 60.0 (>60); GLUCOSE, FASTING 84 MG/DL (70-100); POTASSIUM SERUM 3.9 MEQ/L (3.5-5.1); SODIUM LEVEL 140 MEQ/L (136-145); TOTAL PROTEIN 7.4 GM/DL (6.4-8.2)
[2020-01-04] MEDS: ONDANSETRON 4 MG TAB PO PRN (06:29)
[2020-01-04] MEDS: BUPRENORPHINE/NALOXONE 2-0.5MG SUBLINGUAL TABLET(SUBOXONE) SL SCH (08:18)
[2020-01-04] MEDS: MICAFUNGIN SODIUM 100 MG in D5W MINI-BAG PLUS 100 ML IV SCH (08:18)
--- NOTE | 2020-01-04 10:08 | MHCRPDOC ---
[facility] Consultation Consultation DATE OF CONSULTATION: 01/04/20 Subjective HPI: Patient has met with me for an addiction medication consultation. His primary provider in the hospital had requested it as he was going into opioid withdrawal but has endocarditis of which hes being treated for. His attending provider reported that after Suboxone at my recommendation, the patient has been more amenable with the withdrawal side effects. He has been okay with getting treatment for his endocarditis, of which previously by report, he had been very ambivalent about leaving AMA multiple times. On meeting the patient, he reports that the Suboxone is quite helpful. He is currently in court. Although hes not aligned with drug court at this time, currently not in with any addiction treatment. He has a history of significant addictions of mushrooms, stimulants, opioids, and others. 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 No history of suicides per chart review. SOCIAL HISTORY - SUBSTANCE USE: The patient has a history of heroin use and multiple other substances. Objective Behavior: Mildly sleepy. Able to engage at times. Thought Form: Linear and goal directed. Thought Content: No evidence of delusions. No evidence of suicidal ideation. No thoughts of self harm. No evidence of aggressive or homicidal ideation. Judgement: Fair - limited. Baseline level. Insight: Fair to limited. Baseline level. Assessment F11.20 Opioid dependence, uncomplicated Plan Send Suboxone 4 mg daily, 7-day supply Discussed with patient length about going to our walk-in clinic for assessment and further treatment. Laura decided that its appropriate at this time to give a small supply of Suboxone as his history of opioid use puts them at great danger of overdose and , thus harm reduction is ideal in this situation. Well attempt to link him with the outpatient addiction clinic through walk-in as he reports he is mandated to have an assessment done prior to having his court date. The patient at this time has no suicidal thoughts and does not have any significant psychiatric history and thus is a low risk for suicide. Patient will be treated medically and then charged. He does not meet involuntary criteria for inpatient psychiatric care and is primarily substance use, thus being inappropriate for a voluntary admission. Vital Signs Vital Signs Date Time Temp Pulse Resp B/P (MAP) Pulse Ox O2 Delivery O2 Flow Rate FiO2 01/04/20 06:00 98.5 54 18 131/87 (102) 90 Room Air Laboratory Data 24H Labs Laboratory Tests 2 01/03/20 11:39: Vancomycin Level Trough 10.8 01/04/20 05:38: Vancomycin Level Trough 11.5, Immature Granulocyte % (Auto) 0.1, Neutrophils (%) (Auto) 68.8H, Lymphocytes (%) (Auto) 16.5L, Monocytes (%) (Auto) 11.6H, Eosinophils (%) (Auto) 2.6, Basophils (%) (Auto) 0.4, Neutrophils # (Auto) 5.1, Lymphocytes # (Auto) 1.2L, Monocytes # (Auto) 0.9H, Eosinophils # (Auto) 0.2, Basophils # (Auto) 0.0, Nucleated Red Blood Cells % (auto) 0.0, Anion Gap 7L, Glomerular Filtration Rate > 60.0, Calcium Level 8.7, Total Bilirubin 0.5, Direct Bilirubin 0.2, Aspartate Amino Transf (AST/SGOT) 53H, Alanine Aminotransferase (ALT/SGPT) 75, Alkaline Phosphatase 102, Total Protein 7.4, Alb umin 3.1L, Albumin/Globulin Ratio 0.7 Home Medications Current Medications Current Medications Medications (Trade) Dose Ordered Sig/Any Route PRN Reason Start Time Stop Time Status Last Admin Dose Admin Acetaminophen (Tylenol Tab) 650 mg Q4HP PRN PO PAIN OR FEVER 01/02/20 03:00 01/02/20 15:25 Buprenorphine/ Naloxone (Suboxone 2/ 0.5mg) 2 tab DAILY SL 01/03/20 09:00 01/04/20 08:18 Heparin Sodium (Porcine) (Heparin) 5,000 units Q8H SQ 01/03/20 14:00 Home Med (Med Rec Complete!) ASDIRECTED XX 01/02/20 04:45 01/02/20 04:48 DC Ketorolac Tromethamine (ToRADol) 30 mg Q6HP PRN IV PAIN/FEVER 01/02/20 03:00 01/07/20 02:59 01/04/20 06:30 Micafungin Sodium 100 mg/Dextrose 100 ml @ 100 mls/hr Q24H IV 01/03/20 08:00 01/04/20 08:18 Ondansetron HCl (Zofran) 4 mg Q4HP PRN PO NAUSEA OR VOMITING 01/02/20 09:00 01/04/20 06:29 Sodium Chloride 1,000 ml @ 150 mls/hr Q6H40M IV 01/02/20 03:00 01/02/20 16:19 DC 01/02/20 08:32 Vancomycin HCl 1000 mg/IV Miscellaneous Supplies 1 each/ Dextrose 270 ml @ 270 mls/hr Q6H IV 01/03/20 00:00 01/04/20 06:29 Vancomycin HCl 1000 mg/IV Miscellaneous Supplies 1 each/ Dextrose 270 ml @ 270 mls/hr Q8H IV 01/02/20 08:00 01/02/20 23:42 DC 01/02/20 16:32 Scheduled Buprenorphine HCl/Naloxone HCl (Suboxone 4 mg-1 mg Sl Film) 1 Each Film, 1 STRIP SL DAILY Fluconazole (Diflucan) 100 Mg Tablet, 100 MG PO DAILY for yeast infection Allergies Coded Allergies: codeine (Verified Allergy, Intermediate, face/back swelling, 05/07/19) ZONIA JJ DO Jan 04, 2020 10:08
[2020-01-04] MEDS ORDERED: SUBO4MIS SL (10:33)
--- NOTE | 2020-01-04 13:19 | IPNPDOC ---
Subjective Date Seen The patient was seen on 01/04/20. Subjective Chief Complaint/HPI pt afebrile, in no distress, awaiting BARBARA today General: Denies: ROS Unobtainable, Chills, Night Sweats, Fatigue, Malaise, Normal Appetite, Other Symptoms Constitutional: Denies: Chills, Fever, Malaise, Night Sweats, Weakness, Fatigue, Weight Loss, Lethargy, Other Pulmonary: Denies: Dyspnea, Cough, Pleuritic Chest Pain, Other Symptoms Cardiovascular: Denies: Chest Pain, Palpitations, Orthopnea, Paroxysmal Noc. Dyspnea, Edema, Lt Headedness, Other Symptoms Gastrointestinal: Denies: Nausea, Vomiting, Abdominal Pain, Diarrhea, Const ipation, Melena, Hematochezia, Other Symptoms Genitourinary: Denies: Dysuria, Frequency, Incontinence, Hematuria, Retention, Other Symptoms Hematologic: Denies: Bruising, Bleeding Excessively, Petecchia, Purpura, Enlarged Lymph Nodes, Other Hematologic Endocrine: Denies: Polydipsia, Polyphagia, Polyuria, Heat Intolerance, Cold Intolerance, Other Endocrine Sx Musculoskeletal: Denies: Neck Pain, Back Pain, Shoulder Pain, Arm Pain, Hand Pain, Leg Pain, Foot Pain, Joint Pain, Muscle Pain, Spasms, Other Symptoms Neurological: Denies: Weakness, Numbness, Incoordination, Change in speech, C onfusion, Seizures, Other Symptoms Objective Physical Examination Chest Exam: Positive: Clear to auscultation Heart Exam: Positive: Rate Normal, Normal S1, Normal S2 Abdomen Exam: Positive: Normal bowel sounds, Soft Extremity Exam: Positive: Normal pulses Skin Exam: Positive: Nl turgor and temperature, Other skin issue (multiple scabs on all over the body in different stages) Assessment /Plan Problems (1) Febrile illness, acute Status: Acute Problem Text: Hx of IVDA and homeless ness Can not R/O SABE in this setting Discussed with Dr Maldonado, he will get BARBARA today If BARBARA negative,he might be Dc home on PO anti Bx Continue Zosyn/vanco Dr Ibarra not available till Wednesday Discussed with dr Aguayo, he will make arrangements for out pt suboxone therapy once discharged Blood cultures show Fungus-On mycofungin already (2) Drug abuse Status: Acute Problem Text: Discussed with Dr Kincaid, pt started on Suboxone 4mg daily to prevent withdrwal and pt leaving AMA without tratment for his possible Endoc arditis. Dr Aguayo saw pt toady, will make arrangements for Out pt suboxone treatment on DC Plan/VTE VTE Prophylaxis Ordered?: Yes VS, I&O, 24H, Fishbone Vital Signs/I&O Vital Signs Date Time Temp Pulse Resp B/P (MAP) Pulse Ox O2 Delivery O2 Flow Rate FiO2 01/04/20 06:00 98.5 54 18 131/87 (102) 90 Room Air I&O- Last 24 Hours up to 6 AM 01/04/20 06:00 Intake Total 3745 ml Output Total 4150 ml Balance -405 ml Laboratory Data 24H LABS Laboratory Tests 2 01/04/20 05:38: Immature Granulocyte % (Auto) 0.1, Neutrophils (%) (Auto) 68.8H, Lymphocytes (%) (Auto) 16.5L, Monocytes (%) (Auto) 11.6H, Eosinophils (%) (Auto) 2.6, Basophils (%) (Auto) 0.4, Neutrophils # (Auto) 5.1, Lymphocytes # (Auto) 1.2L, Monocytes # (Auto) 0.9H, Eosinophils # (Auto) 0.2, Basophils # (Auto) 0.0, Nucleated Red Blo od Cells % (auto) 0.0, Anion Gap 7L, Glomerular Filtration Rate > 60.0, Calcium Level 8.7, Total Bilirubin 0.5, Direct Bilirubin 0.2, Aspartate Amino Transf (AST/SGOT) 53H, Alanine Aminotransferase (ALT/SGPT) 75, Alkaline Phosphatase 102, Total Protein 7.4, Albumin 3.1L, Albumin/Globulin Ratio 0.7, Vancomycin Level Trough 11.5 CBC/BMP Laboratory Tests 01/04/20 05:38 Microbiology Microbiology 01/03/20 Blood Culture - Preliminary, Resulted No growth after 24 hours . All specim... 01/01/20 Respiratory Virus Panel (PCR) ([facility]) - Final, Complete 01/01/20 Blood Culture - Preliminary, Resulted Yeast Like Organism 01/01/20 Blood Culture - Preliminary, Resulted Yeast Like Organism DANELLE CHRISTIANSON MD Jan 04, 2020 13:19
[2020-01-04] MEDS ORDERED: LIDOCAINE VISCOUS 2% SOLN 15ML UDC As Ordered ONE (13:46)
[2020-01-04 14:00] VITALS: BP 152/87
[2020-01-04] MEDS ORDERED: MIDAZOLAM INJ 2MG/2ML VIAL (J2250 PER 1MG) As Ordered ONE ×2 (14:47→14:52)
[2020-01-04 15:15] VITALS: BP 151/91
[2020-01-04] MEDS ORDERED: FLUC10TA PO (15:18)
--- NOTE | 2020-01-04 16:37 | DS.PDOC ---
Discharge Summary General Date of Admission Jan 02, 2020 at 02:53 Date of Discharge 01/04/20 Discharge Summary PROCEDURES PERFORMED DURING STAY: [None]. ADMITTING DIAGNOSES: 1. [fever,drug abuse]. DISCHARGE DIAGNOSES: 1. [febrile illness,Opiod withdrawl, Fungemia in blood cultures, Hx of IV drug abuse ] COMPLICATIONS/CHIEF COMPLAINT: Drug Abuse, Fever, Low Back Pain. HISTORY OF PRESENT ILLNESS: [Pt was admitted with febrile illness and symptoms suggestive of opiod withdrawl. Pt is not reliable and has signed out of hospital multiple times in the past.] HOSPITAL COURSE: [Pt was admitted with febrile illness and Opiod withdrawl symptoms such as body and muscke pain and tremors. Hx of IVDA and homeless ness First set of blood cultures showed yeast like organism Second blood cultures negative Pt was started on Vanco/Zosyn and Mycafungin Today he had BARBARA done by Dr Maldonado: Did not show any vegetations Pt has been afebrile since admission, unfortunately ID is not available this week and pt is insistant on leaving today, he threatened to sign out AMA if not discharged. He will be DC home on PO Diflucan and F/U with Dr Ibarra as out pt. He was also seen by Dr Aguayo and suboxone was precribe for use as out pat and F/U with addiction clinic as out pt. ]. DISCHARGE MEDICATIONS: Please see below. ALLERGIES: Please see below. PHYSICAL EXAMINATION ON DISCHARGE: VITAL SIGNS: Please see below. GENERAL: [WNL] HEENT: [THELMA/EOMI] NECK: [Supple] CARDIOVASCULAR EXAMINATION: [S1,S2 reg] RESPIRATORY EXAMINATION: [Clear to A&P] ABDOMINAL EXAMINATION: [Benign] EXTREMITIES: [No CCE] SKIN: [Multiple healing scabs all over the body] NEUROLOGICAL EXAMINATION: [no focal deficit] PSYCHIATRIC EXAMINATION: [Withdrwan] LABORATORY DATA: Please see below. IMAGING: [BARBARA: NO VEGETATION] PROGNOSIS: [fair] ACTIVITY: [As tolerated]. DIET: [as tolerated] DISCHARGE PLAN: [as per Dc instructions] DISPOSITION: 01 Home, Self-Care. DISCHARGE INSTRUCTIONS: 1. [As above]. ITEMS TO FOLLOWUP ON ON OUTPATIENT: 1. [F/u with addiction clinic as out pt]. DISCHARGE CONDITION: [Stable]. TIME SPENT ON DISCHARGE: 38 minutes. Vital Signs/I&Os Vital Signs Date Time Temp Pulse Resp B/P (MAP) Pulse Ox O2 Delivery O2 Flow Rate FiO2 01/04/20 15:15 63 18 151/91 (111) 99 Room Air 01/04/20 15:00 3 01/04/20 14:00 98.6 I&O- Last 24 Hours up to 6 AM 01/04/20 06:00 Intake Total 3745 ml Output Total 4150 ml Balance -405 ml Laboratory Data Labs 24H Laboratory Tests 2 01/04/20 05:38: Immature Granulocyte % (Auto) 0.1, Neutrophils (%) (Auto) 68.8H, Lymphocytes (%) (Auto) 16.5L, Monocytes (%) (Auto) 11.6H, Eosinophils (%) (Auto) 2.6, Basophils (%) (Auto) 0.4, Neutrophils # (Auto) 5.1, Lymphocytes # (Auto) 1.2L, Monocytes # (Auto) 0.9H, Eosinophils # (Auto) 0.2, Basophils # (Auto) 0.0, Nucleated Red Blood Cells % (auto) 0.0, Anion Gap 7L, Glomerular Filtration Rate > 60.0, Calcium Level 8.7, Total Bilirubin 0.5, Direct Bilirubin 0.2, Aspartate Amino Transf (AST/SGOT) 53H, Alanine Aminotransferase (ALT/SGPT) 75, Alkaline Phosphatase 102, Total Protein 7.4, Albumin 3.1L, Albumin/Globulin Ratio 0.7, Vancomycin Level Trough 11.5 CBC/BMP Laboratory Tests 01/04/20 05:38 Microbiology Microbiology 01/03/20 Blood Culture - Preliminary, Resulted No growth after 24 hours . All specim... 01/01/20 Respiratory Virus Panel (PCR) ([facility]) - Final, Complete 01/01/20 Blood Culture - Preliminary, Resulted Yeast Like Organism 01/01/20 Blood Culture - Preliminary, Resulted Yeast Like Organism Discharge Medications Scheduled Buprenorphine HCl/Naloxone HCl (Suboxone 4 mg-1 mg Sl Film) 1 Each Film, 1 STRIP SL DAILY Fluconazole (Diflucan) 100 Mg Tablet, 100 MG PO DAILY for yeast infection Allergies Coded Allergies: codeine (Verified Allergy, Intermediate, face/back swelling, 05/07/19) DANELLE CHRISTIANSON MD Jan 04, 2020 16:37
--- NOTE | 2020-01-19 12:57 | T-ECHO ---
REFERRING PHYSICIAN: ANTOINE Castillo INDICATIONS FOR PROCEDURE: 45-day post Watchman transesophageal echocardiogram (BARBARA). PREPROCEDURE DIAGNOSIS: 45-day post Watchman transesophageal echocardiogram (BARBARA). POSTPROCEDURE DIAGNOSIS: Watchman left atrial closure device in situ. PROCEDURE FINDINGS: Watchman left atrial closure device in situ. PROCEDURE PERFORMED: Transesophageal echocardiogram. PROCEDURE PERFORMED BY: Clement Maldonado MD. ARMORED SERVICE TECHNICIAN: None. ITRAVENOUS SEDATION: Midazolam 3 mg IV. COMPLICATIONS: None. PROCEDURE DESCRIPTION: Rhythm was atrial fibrillation. Patient received Cetacaine spray to the back of the pharynx. She received a total of 3 mg Midazolam IV for sedation. Patient tolerated the procedure well without any immediate complications. Esophageal intubation was accomplished using a Espinosa 3D transesophageal echocardiogram probe without difficulty. The left atrial appendage showed a well-seated Watchman left atrial closure device that was without any paradevice gaps. No thrombus was seen on the Watchman device. The left atrium otherwise appeared to be at least mildly dilated. Atrial septum was intact anatomically and by color flow Doppler. The left ventricle appeared normal in size and systolic function without regional wall motion abnormalities. Left ventricular ejection fraction 65% by visual estimate. Right ventricle appeared normal in size and systolic function. No pericardial effusion. Aortic valve was 3-cuspid aortic valve and displayed mild aortic regurgitation. No aortic stenosis. At least mild mitral annular calcification. Moderate mitral regurgitation. No significant tricuspid regurgitation. No significant pulmonic regurgitation. The distal aortic arch and descending thoracic aorta were only moderately well visualized, but appeared to show mild atheroma. CONCLUSIONS: * Satisfactory placement of a Watchman device in the left atrial appendage. No thrombus on the left atrial closure device. * Normal left ventricle size and systolic function. LVEF of 65% by visual estimate. * At least mild mitral annular calcification. Moderate mitral regurgitation. * Mild aortic valve sclerosis with mild aortic regurgitation. * Mild atheroma in the distal aortic arch and descending thoracic aorta. [facility]
--- NOTE | 2020-01-19 13:10 | T-ECHO ---
INDICATION: Infective endocarditis. PROCEDURES PERFORMED: Transesophageal echocardiogram. PREPROCEDURE DIAGNOSIS: Infective endocarditis. POSTPROCEDURE DIAGNOSIS: No vegetations. Mild aortic regurgitation with structurally normal appearing aortic valve. PROCEDURE PERFORMED BY: Clement Maldonado M.D. SCHOOL OPERATIONS MANAGER: None. INTRAVENOUS (IV) SEDATION: Midazolam 8 mg IV. COMPLICATIONS: None. DESCRIPTION OF PROCEDURE: Patient received viscous Lidocaine to gargle. He received a total of midazolam 8 mg IV for IV sedation. Patient tolerated the procedure well without any immediate complications. Esophageal intubation was accomplished without difficulty using a Espinosa 3D transesophageal echocardiogram probe. Rhythm was sinus. The left and right ventricles appeared normal in size and systolic function. Left ventricular ejection fraction was 60% by visual assessment. Atrial septum was intact anatomically and by color flow Doppler. No masses or thrombi were seen within the atria or their appendages. Aortic valve appeared structurally normal and was 3-cuspid. Mild central aortic regurgitation was present. Mitral leaflets appeared structurally normal. Very mild mitral regurgitation was present and .. Pulmonic valve appeared normal and very mild pulmonic regurgitation was present and within normal. Tricuspid leaflets appeared structurally normal. Very mild tricuspid regurgitation. No pericardial effusion. No cardiac abscesses. CONCLUSIONS: * No vegetations. * Mild aortic regurgitation with a structurally normal appearing 3-cuspid aortic valve. * Otherwise normal appearing transesophageal echocardiogram. Normal distal aortic arch and descending thoracic aorta. [facility]
--- NOTE | 2020-01-21 17:11 | ECGEPIP ---
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 RBBB SEE DOWNTIME SCANNED REPORT
--- NOTE | 2020-01-30 11:02 | HPE ---
DATE OF ADMISSION: 01/02/2020 CHIEF COMPLAINT: Fever, I dont feel good, for one day. HISTORY OF PRESENTING ILLNESS: This is a 29-year-old male with a history of IV drug use who presents to the emergency room with acute onset of not feeling well for one day. He was found to have a fever of 101 and shaking chills at home. No medications were taken. The patient is a known drug abuser and usually has skin pops with multiple bilateral upper and lower extremities lesions due to IV drug use. He was found to have a fever of 101 in the emergency room, white count of 13,000, with elevated CRP of 1.1, abnormal liver function tests with normal bilirubin, COVID negative. Respiratory panel was negative. Chest x-ray was negative. He also complains of low back pain without dysuria, urgency, frequency, flank pain, or dysuria. No nausea, vomiting, or diarrhea. No shortness of breath, chest pain, pressure, or tightness. The patient admits to using drugs, IV heroin, cocaine. Opiates is his drug of choice and marijuana. Hospital service was called to admit for fever of unknown origin, possible endocarditis with blood cultures pending. PAST MEDICAL HISTORY: IV drug use. PAST SURGICAL HISTORY: None. 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 Drug of choice is opiates. History of cocaine, marijuana, and heroin use. FAMILY HISTORY: Unknown. REVIEW OF SYSTEMS: Per HPI, 12 points system otherwise negative. HOME MEDICATIONS: None. ALLERGIES: CODEINE CAUSING HIVES. PHYSICAL EXAMINATION: VITAL SIGNS: Temperature 101, pulse 99, respiratory rate 22, blood pressure 141/83, 99% on room air. GENERAL: The patient is lethargic, opens his eyes but goes to sleep quickly. HEENT: Anicteric sclera, no jaundice. Pupils round and reactive. Extraocular movement intact. Dry mucous membranes. NECK: No JVD, thyromegaly, or cervical lymphadenopathy. SKIN: Multiple excoriations, laceration about 2 cm in the right upper thigh. He has no signs of cellulitis, induration, or erythematous dexter. LUNGS: Clear to auscultation. No wheezing, rales, or rhonchi. HEART: S1, S2, normal murmurs or rubs or gallops. Regular rate and rhythm. ABDOMEN: Soft, nontender, nondistended. Positive bowel sounds. No rebound or guarding. EXTREMITIES: No clubbing, cyanosis, or pitting edema. LABORATORY DATA: White count 13.6, hemoglobin 14, hematocrit 38, platelet count 183. Sodium 139, potassium 2.7, chloride 103, bicarbonate 28, BUN 13, creatinine 0.87, glucose 117, direct bilirubin 0.3, AST 154, ALT 103, alkaline phosphatase 126, C-reactive protein 1.11, total proteins 7.6. COVID-19 negative. Respiratory panel negative. Two sets of blood cultures pending. IMAGING: Chest x-ray: No acute findings. ASSESSMENT: This is a 29-year-old male with a history of IV drug use, multiple skin pops, lesions in the bilateral upper and lower extremities, who presents with a fever of 101 with no other signs of cellulitis, and hypokalemia, abnormal liver function tests, COVID negative. IMPRESSION: Fever of unknown origin, most likely bacteremia from IV drug use, rule out endocarditis. Respiratory panel is negative. COVID-19 is negative. Chest x-ray is negative. The patient will be given empiric Vancomycin. Check MRSA screening. If blood cultures are negative, discontinue antibiotics. IV fluids, normal saline, IV bolus x2 liters at 150 mL/h. Polysubstance abuse with IV drug use. Admits to opiate abuse, history of heroin, cocaine, mildly with marijuana. Check urine drug screen. Hypokalemia. Check magnesium level, replete magnesium and potassium as needed. Abnormal liver function tests. Track hepatitis serology, HIV. No abdominal pain to suspect cholelithiasis, biliary colic, acute cholecystitis. Repeat liver function tests in the morning. Systemic inflammatory response with tachycardia, tachypnea, fever, unknown source of infection. Await culture results. [facility]
--- NOTE | 2020-01-30 11:15 | T-ECHO ---
DATE: 01/04/2020 INDICATION: Infective endocarditis. PROCEDURES PERFORMED: Transesophageal echocardiogram. PREPROCEDURE DIAGNOSIS: Infective endocarditis. POSTPROCEDURE DIAGNOSIS: No vegetations. Mild aortic regurgitation with structurally normal appearing aortic valve. PROCEDURE PERFORMED BY: Clement Maldonado M.D. LANDSCAPE ARCHITECTURE TEACHER: None. INTRAVENOUS (IV) SEDATION: Midazolam 8 mg IV. COMPLICATIONS: None. DESCRIPTION OF PROCEDURE: Patient received viscous Lidocaine to gargle. He received a total of midazolam 8 mg IV for IV sedation. Patient tolerated the procedure well without any immediate complications. Esophageal intubation was accomplished without difficulty using a Espinosa 3D transesophageal echocardiogram probe. Rhythm was sinus. The left and right ventricles appeared normal in size and systolic function. Left ventricular ejection fraction was 60% by visual assessment. Atrial septum was intact anatomically and by color flow Doppler. No masses or thrombi were seen within the atria or their appendages. Aortic valve appeared structurally normal and was 3-cuspid. Mild central aortic regurgitation was present. Mitral leaflets appeared structurally normal. Very mild mitral regurgitation was present. Pulmonic valve appeared normal and very mild pulmonic regurgitation was present and within normal. Tricuspid leaflets appeared structurally normal. Very mild tricuspid regurgitation. No pericardial effusion. No cardiac abscesses. CONCLUSIONS: No vegetations. Mild aortic regurgitation with a structurally normal appearing 3-cuspid aortic valve. Otherwise normal appearing transesophageal echocardiogram. Normal distal aortic arch and descending thoracic aorta. [facility]
--- NOTE | 2020-01-30 11:19 | REP ---
LUMBOSACRAL SPINE SERIES CLINICAL: Fever and back pain. TECHNIQUE: AP, lateral, bilateral oblique, and cone down views of the lumbosacral spine. FINDINGS: Alignment and lordosis maintained. Vertebral bodies are intact. No acute fracture/compression injury or subluxation. No evidence for spondylolysis or spondylolisthesis. No significant degenerative changes. IMPRESSION: Normal age appropriate lumbosacral spine radiographs. [facility]D
== END 2020-01-04 16:00 | disposition home or self-care (01) | DRG 722 ==
LOC: M ED 22:22 → M ED INP 01-02 02:53 → M MSPAV 01-02 15:36
PROVIDERS: ADMIT General Practice; ATTEND Internal Medicine
PROC: B246ZZ4 Ultrasonography of Right and Left Heart, Transesophageal (ICD-10-PCS; principal; 2020-01-04 14:00)
DX: R50.9 Fever, unspecified (principal); F11.23 Opioid dependence with withdrawal; F14.10 Cocaine abuse, uncomplicated; I35.1 Nonrheumatic aortic (valve) insufficiency; E87.6 Hypokalemia; F17.210 Nicotine dependence, cigarettes, uncomplicated; Z88.5 Allergy status to narcotic agent

== ENCOUNTER → 2020-01-18 | Outpatient (REF) | payer OTHER ==
[~2020-01-18] MED LIST changes: +FLUC10TA PO; +SUBO4MIS SL
[2020-01-19 11:53] LABS: BASO # 0.1 10^3/uL (0.0-0.2); EOS # 0.3 10^3/uL (0.0-0.5); EOS % 4.1 % (0.0-3.0); HEMATOCRIT 45.7 % (42.0-52.0); HEMOGLOBIN 15.4 g/dl (13.5-17.5); LYMPH # 1.6 10^3/uL (1.5-5.0); LYMPH % 21.6 % (24.0-44.0); MEAN CORPUSCULAR HEMOGLOBIN 29.4 pg (27.0-33.0); MEAN CORPUSCULAR HGB CONC 33.7 g/dl (32.0-36.5); MEAN CORPUSCULAR VOLUME 87.4 fl (80.0-96.0); MONO # 0.7 10^3/uL (0.0-0.8); MONO % 9.4 % (0.0-5.0); NEUTROPHILS # 4.7 10^3/uL (1.5-8.5); NEUTROPHILS % 63.6 % (36.0-66.0); PLATELET COUNT, AUTOMATED 320 10^3/uL (150-450); RED BLOOD COUNT 5.23 10^6/uL (4.30-6.10); WHITE BLOOD COUNT 7.3 10^3/uL (4.0-10.0)
[2020-01-19 12:46] LABS: ERYTHROCYTE SEDIMENTATION RATE 11 mm/hr (0-15)
[2020-01-19 13:13] LABS: ALT/SGPT 181 U/L (12-78); BILIRUBIN,TOTAL 0.4 MG/DL (0.2-1.0); BLOOD UREA NITROGEN 19 MG/DL (7-18); CALCIUM LEVEL 8.9 MG/DL (8.5-10.1); CARBON DIOXIDE LEVEL 27 MEQ/L (21-32); CHLORIDE LEVEL 105 MEQ/L (98-107); CREATININE FOR GFR 0.87 MG/DL (0.70-1.30); GLOMERULAR FILTRATION RATE > 60.0 (>60); GLUCOSE, FASTING 103 MG/DL (70-100); HEPATITIS B SURFACE ANTIBODY NEGATIVE (POSITIVE); POTASSIUM SERUM 4.7 MEQ/L (3.5-5.1); SODIUM LEVEL 137 MEQ/L (136-145); TOTAL PROTEIN 8.3 GM/DL (6.4-8.2)
[2020-01-25 00:08] LABS: HEPATITIS A IgG TOTAL Positive (Negative); HEPATITIS B CORE ANTIBODY IGG Negative (Negative); HEPATITIS C QUANTITATION 2307230 IU/mL (.)
== END ==
LOC: M SFHCPLAZ 10:05
PROVIDERS: ATTEND Internal Medicine Infectious Disease
DX: B37.9 Candidiasis, unspecified (principal)

== ENCOUNTER 2020-04-29 12:36 | Emergency (ER) | payer OTHER ==
[~2020-04-29] VITALS: Ht 193 cm; Wt 113.6 kg
[~2020-04-29 12:36] MED LIST changes: -CLIN300C5; +CLIN300C6
[2020-04-29] MEDS ORDERED: LIDOCAINE W/EPINEPHRINE 1% 20ML VIAL SC ONE (13:15)
[2020-04-29] MEDS ORDERED: BOOSTRIX/ADACEL VACCINE (DIPHTH/PERTUSS/ACELL/TETANUS) 0.5ML SYR IM ONE (13:15)
--- NOTE | 2020-04-29 13:34 | REP ---
INDICATION: facial trauma, contusion nose, lac abocve r eyebrow COMPARISON: None. TECHNIQUE: Axial noncontrast images through the facial bones to include the mandible with coronal and sagittal re-formations. FINDINGS: Right infraorbital/facial soft tissue swelling is appreciated and there is evidence for a nondisplaced fracture at the right nasal bone (series 201; image 18). Nasal septum appears intact. Nasal passages and sinuses are relatively clear and without fluid levels to suggest further injury. There is mild mucosal thickening to the right maxillary sinus which appears chronic. Remainder of the osseous structures including bilateral temporomandibular joints, orbital gloria and visualized portions of the mandible are intact. Bilateral orbits are symmetric and without evidence for associated injury. IMPRESSION: Subtle nondisplaced fracture at the right nasal bone. <Electronically signed by Bossman Vera > 04/29/20 [id number]
[2020-04-29 15:07] VITALS: BP 151/69
== END 2020-04-29 15:09 | disposition home or self-care (01) ==
LOC: M ED 12:36
DX: S02.2XXA Fracture of nasal bones, initial encounter for closed fracture (principal); S01.81XA Laceration without foreign body of other part of head, initial encounter; X58.XXXA Exposure to other specified factors, initial encounter; Y92.149 Unspecified place in prison as the place of occurrence of the external cause; B19.20 Unspecified viral hepatitis C without hepatic coma; F11.20 Opioid dependence, uncomplicated; Z88.5 Allergy status to narcotic agent; Z87.891 Personal history of nicotine dependence

== ENCOUNTER 2020-08-11 11:52 | Emergency (ER) | payer MEDICAID, OTHER ==
[~2020-08-11] VITALS: Ht 193 cm; Wt 100.0 kg
[2020-08-11] MEDS ORDERED: LORazepam 2 MG TAB PO ONE (13:25)
[2020-08-11] MEDS ORDERED: IBUPROFEN 800 MG TAB PO ONE (13:25)
[2020-08-11] MEDS ORDERED: NS 1,000 ML IV ONE (13:25)
[2020-08-11 14:03] LABS: BASO % 0.2 % (0.0-1.0); EOS # 0.1 10^3/uL (0.0-0.5); EOS % 0.4 % (0.0-3.0); HEMATOCRIT 36.7 % (42.0-52.0); HEMOGLOBIN 12.8 g/dl (13.5-17.5); LYMPH % 9.8 % (24.0-44.0); MEAN CORPUSCULAR HEMOGLOBIN 30.9 pg (27.0-33.0); MEAN CORPUSCULAR HGB CONC 34.9 g/dl (32.0-36.5); MEAN CORPUSCULAR VOLUME 88.6 fl (80.0-96.0); MONO % 9.3 % (2.0-8.0); NEUTROPHILS # 16.3 10^3/uL (1.5-8.5); NEUTROPHILS % 79.3 % (36.0-66.0); PLATELET COUNT, AUTOMATED 295 10^3/uL (150-450); RED BLOOD COUNT 4.14 10^6/uL (4.30-6.10)
[2020-08-11 14:25] LABS: ALBUMIN 3.1 GM/DL (3.2-5.2); ALT/SGPT 55 U/L (12-78); BILIRUBIN,DIRECT 0.4 MG/DL (0.0-0.2); TOTAL PROTEIN 7.1 GM/DL (6.4-8.2)
[2020-08-11 14:32] LABS: WHITE BLOOD COUNT 20.6 10^3/uL (4.0-10.0)
[2020-08-11 14:33] LABS: MONO # 1.9 10^3/uL (0.0-0.8)
[2020-08-11 14:35] LABS: ERYTHROCYTE SEDIMENTATION RATE 53 mm/hr (0-15)
[2020-08-11 14:57] LABS: BLOOD UREA NITROGEN 16 MG/DL (7-18); CALCIUM LEVEL 8.1 MG/DL (8.5-10.1); CARBON DIOXIDE LEVEL 29 MEQ/L (21-32); CHLORIDE LEVEL 96 MEQ/L (98-107); GLOMERULAR FILTRATION RATE > 60.0 (>60); GLUCOSE, FASTING 112 MG/DL (70-100); POTASSIUM SERUM 3.7 MEQ/L (3.5-5.1); SODIUM LEVEL 131 MEQ/L (136-145)
--- NOTE | 2020-08-11 15:34 | REP ---
INDICATION: R/O DVT. COMPARISON: 12/06/2019. TECHNIQUE: Duplex ultrasound of the left lower extremity deep veins. FINDINGS: The deep veins demonstrate normal compression, normal Doppler color flow and normal Doppler waveforms with respiration augmentation at multiple levels from the popliteal vein to the common femoral vein. IMPRESSION: There is no ultrasound evidence of left lower extremity deep vein thrombus. <Electronically signed by Jean-Paul Urban > 08/11/20 [id number]
[2020-08-11] MEDS ORDERED: DALBAVANCIN 1,500 MG in D5W 250 ML IV ONE (16:00)
[2020-08-11 16:59] VITALS: BP 143/76
== END 2020-08-11 17:20 | disposition home or self-care (01) ==
LOC: M ED 11:52
DX: L03.116 Cellulitis of left lower limb (principal); B18.2 Chronic viral hepatitis C; F17.210 Nicotine dependence, cigarettes, uncomplicated; Z88.5 Allergy status to narcotic agent
CPT/HCPCS: 80048; 80076; 83605; 85025; 85652; 86140; 87040; 87070; 87077; 87186; 87205; 93971; 96361; 96365; 99283; J0875

== ENCOUNTER 2020-08-14 22:34 | Inpatient (IN) | payer OTHER ==
[~2020-08-14] VITALS: Ht 193 cm; Wt 99.8 kg
[2020-08-15] MEDS ORDERED: VANCOMYCIN HCL 2,000 MG in D5W 500 ML IV ONE (07:15)
[2020-08-15] MEDS: NS 1,000 ML IV SCH ×4 (07:46→16:50)
[2020-08-15 07:59] LABS: BASO # 0.1 10^3/uL (0.0-0.2); BASO % 0.7 % (0.0-1.0); EOS # 0.1 10^3/uL (0.0-0.5); EOS % 0.8 % (0.0-3.0); HEMATOCRIT 38.9 % (42.0-52.0); HEMOGLOBIN 13.3 g/dl (13.5-17.5); LYMPH # 2.3 10^3/uL (1.5-5.0); LYMPH % 15.5 % (24.0-44.0); MEAN CORPUSCULAR HEMOGLOBIN 30.7 pg (27.0-33.0); MEAN CORPUSCULAR HGB CONC 34.2 g/dl (32.0-36.5); MEAN CORPUSCULAR VOLUME 89.8 fl (80.0-96.0); MONO # 1.5 10^3/uL (0.0-0.8); MONO % 10.2 % (2.0-8.0); NEUTROPHILS # 10.5 10^3/uL (1.5-8.5); NEUTROPHILS % 71.4 % (36.0-66.0); PLATELET COUNT, AUTOMATED 370 10^3/uL (150-450); RED BLOOD COUNT 4.33 10^6/uL (4.30-6.10); WHITE BLOOD COUNT 14.8 10^3/uL (4.0-10.0)
[2020-08-15] MEDS ORDERED: VANCOMYCIN HCL 1,000 MG, VIAL MATE ADAPTER 1 EACH in NS 250 ML IV ONE ×6 (08:00)
--- NOTE | 2020-08-15 08:03 | REPVR ---
PROCEDURE INFORMATION: Exam: US Duplex Left Lower Extremity Veins, Limited Exam date and time: 08/15/2020 7:46 AM Age: 30 years old Clinical indication: Edema, localized; Lower extremity, left; Additional info: Swelling TECHNIQUE: Imaging protocol: Real-time Duplex ultrasound of the Left Lower Extremity with 2-D zuniga scale, color Doppler flow and spectral waveform analysis with image documentation. Limited exam focused on the left lower extremity veins. COMPARISON: US Duplex, Ext,LOWER veins,unilat LEFT 08/11/2020 2:28 PM FINDINGS: Left deep veins: Unremarkable. The common femoral, femoral, proximal profunda femoral and popliteal veins are patent without thrombus. Normal Doppler waveforms. Normal compressibility and/or augmentation response. Left superficial veins: Unremarkable. Saphenofemoral junction is patent without thrombus. Soft tissues: Unremarkable. IMPRESSION: No evidence of deep vein thrombosis. Electronically signed by: Maureen Gonzalez On 08/15/2020 08:04:07 AM
[2020-08-15 08:16] LABS: ALBUMIN 2.7 GM/DL (3.2-5.2); ALT/SGPT 65 U/L (12-78); BILIRUBIN,TOTAL 0.7 MG/DL (0.2-1.0); BLOOD UREA NITROGEN 10 MG/DL (7-18); C REACTIVE PROTEIN QUANTITATIV 7.86 MG/DL (0.00-0.30); CALCIUM LEVEL 8.4 MG/DL (8.5-10.1); CARBON DIOXIDE LEVEL 28 MEQ/L (21-32); CHLORIDE LEVEL 100 MEQ/L (98-107); GLOMERULAR FILTRATION RATE > 60.0 (>60); GLUCOSE, FASTING 95 MG/DL (70-100); POTASSIUM SERUM 4.1 MEQ/L (3.5-5.1); SODIUM LEVEL 135 MEQ/L (136-145); TOTAL PROTEIN 6.8 GM/DL (6.4-8.2)
[2020-08-15 08:27] LABS: ERYTHROCYTE SEDIMENTATION RATE 45 mm/hr (0-15)
[2020-08-15] MEDS ORDERED: traMADol 50 MG TAB PO PRN (08:50)
[2020-08-15] MEDS ORDERED: MORPHINE 2 MG/ML 1ML VIAL (J2270) IV PRN (08:50)
[2020-08-15] MEDS ORDERED: ACETAMINOPHEN TAB 650MG DOSE (2X325MG) PO PRN (08:50)
[2020-08-15] MEDS ORDERED: VANCOMYCIN HCL 1,000 MG, VIAL MATE ADAPTER 1 EACH in NS 250 ML IV SCH (08:50)
[2020-08-15] MEDS ORDERED: LORazepam 2 MG TAB PO PRN (08:50)
[2020-08-15] MEDS ORDERED: NICOTINE 14 MG/24 HR TRANSDERMAL TD ONE (09:30)
[2020-08-15 10:08] LABS: INR 1.22; PROTHROMBIN TIME 15.6 SECONDS (12.5-14.3)
[2020-08-15 10:09] LABS: PARTIAL THROMBOPLASTIN TIME 33.5 SECONDS (24.2-38.5)
[2020-08-15 10:30] VITALS: BP 121/76
[2020-08-15] MEDS: ENOXAPARIN 40MG/0.4ML SYRINGE (J1650 PER 10MG) SC SCH (10:55)
[2020-08-15] MEDS ORDERED: KETOROLAC 30 MG/ML 1ML VIAL IV PRN (11:45)
--- NOTE | 2020-08-15 12:20 | HPEPDOC ---
[facility] Medical History & Physical Date of Admission Aug 15, 2020 Date of Service: Aug 15, 2020 Attending Physician: Nory Conrad MD History and Physical CHIEF COMPLAINT: Increased LLE swelling HISTORY OF PRESENT ILLNESS: Patient is a 30-year-old male with PMH of IV drug abuse, lower ext cellulitis who presented to [facility] emergency room for chief complaint of left lower extremity swelling, pain redness. The patient cannot clarify how long the pain has been there and how long his symptoms have been present. He is an overall poor historian who is very tearful during evaluation and when trying to get medical history. He admits to IV drug abuse, last used Urvashi 24 H ago. According to ER provider and history, the patient was seen here on 07/11/2020 and blood cultures were drawn at that time. On 07/11/20 he was given a dose of Dalvance. He later was discharged home. Blood cultures later grew streptococcus pyogenes Group A and MRSA- unknown if this was called to patient or not. The patient returns today on 08/15/2020 with increased left lower extremity cellulitis, swelling, pain. He has multiple open wounds, some are scabbed on all extremities trunk. VS showed HR 128, afebrile. WBC 14.8, improved from last ER visit of 20,000. ESR and CRP were both elevated. Sodium slightly low 135, repeat blood cultures were drawn as well as urine ordered for analysis and culture. LLE US neg for DVT. On exam, there was no fluctuance of any anterior leg sores that would be of concern for abscess. On exam he had a noted murmur. He was agitated, tearful at times- concerning for withdrawl. He would not respond as to whether he had chest pain, shortness of breath, n/v/d, fevers but did admit to being cold and having increased LLE pain, 10/10 on pain scale. Patient was later admitted for LLE cellulitis, hx of Strep pyogenes Group A and MRSA bacteremia, sepsis requiring inpatient treatment. Note: Patient was falling asleep during my evaluation and did not respond to many of my questions, overall poor historian. REVIEW OF SYSTEMS: Unable to obtain. PAST MEDICAL HISTORY: IV drug abuse PAST SURGICAL HISTORY: None FAMILY HISTORY: Unable to obtain due to mental status SOCIAL HISTORY: From prior histories: smokes a pack of cigarettes a day for at least 15 years, no alcohol use, IV drug user. Drug of choice is opiates. History of cocaine, marijuana, and heroin use. ALLERGIES: Please see below. HOME MEDICATIONS: Please see below. PHYSICAL EXAMINATION: VS: 133/90, HR 65-128, afebrile, RR 16, 98% on RA CONSTITUTIONAL: At times tearful and agitation, in bed, Ox3 when asked EYES: PERRLA, EOM intact HENT, MOUTH: Normocephalic, atraumatic, dry mucous membranes, NECK: SUPPLE, no JVD, no lymphadenopathy, no carotid bruit CV: Regular rate and rhythm, S1S2 normal, + murmurs, no rubs/gallops RESPIRATORY: Clear to auscultation bilaterally, no rales/rhonchi/wheezes GI: BS positive in 4 quadrants, soft, nontender, nondistended, no rebound or guarding, no organomegaly : Deferred MUSCULOSKELETAL: Normal ROM. No cyanosis, clubbing, swelling, joint deformity, extremity edema INTEGUMENTARY: goosebump skin in the upper ext, Multiple open sores/wounds all over body including face, lips, ears, multiple tract dexter on upper ext- unknown if lower wounds are from IV drug use. No purulent or draining areas. Extensive erythema, swelling of the LLE up to above left knee. NEUROLOGIC: No tremoring. Cranial Nerves II-XII are intact, no focal deficits PSYCHIATRIC: agitated, tearful LABORATORY DATA: Please see below IMAGING: LLE US: Neg for DVT ASSESSMENT: 30-year-old male with past mental history of IV drug abuse who presented to [facility] emergency room for chief complaint of left lower extremity swelling, pain redness admitted for LLE cellulitis, hx of Strep pyogenes Group A and MRSA bacteremia, sepsis requiring inpatient treatment. PLAN: LLE cellulitis likely 2/2 to infection from LE wounds -WBC 14K, tachycardic on admission, afebrile. -hx of IVDA, unknown if he also shoots into lower ext -US neg for DVT -BCx from 07/11/20 + for Strep pyogenes, MRSA- had received Dalvance x 1 dose the ER visit these blood cultures have been drawn -F/u repeat blood cultures today, daily CBC -Recommended to put on Teflaro, per pharmacy spoke with Dr. Ibarra. Difficult time in past with getting Vancomycin within goal -IVFs, tele Bacteremia, Streptococcus pyogenes Group A and MRSA (from BCX's 07/11/20) . R/o endocarditis -Since positive cultures, no abx have been given -F/u repeat blood cultures, UA, daily labs -F/u echocardiogram, new murmur found on exam with hx of IVDA Polysubstance abuse with s/s of withdrawl -Goosebump skin, agitation, tearful, chills -F/u UTox -CIWA, ativan PRN -Tele, IVFS DVT Px -Enoxaparin DISPOSITION: Admitted as acute inpatient. Will tb with ID. Vital Signs Vital Signs Date Time Temp Pulse Resp B/P (MAP) Pulse Ox O2 Delivery O2 Flow Rate FiO2 08/15/20 08:05 08/15/20 06:13 97.5 67 16 100 08/14/20 22:34 Room Air Laboratory Data Labs 24H Laboratory Tests 2 08/15/20 07:12: Immature Granulocyte % (Auto) 1.4, Neutrophils (%) (Auto) 71.4H, Lymphocytes (%) (Auto) 15.5L, Monocytes (%) (Auto) 10.2H, Eosinophils (%) (Auto) 0.8, Basophils (%) (Auto) 0.7, Neutrophils # (Auto) 10.5H, Lymphocytes # (Auto) 2.3, Monocytes # (Auto) 1.5H, Eosinophils # (Auto) 0.1, Basophils # (Auto) 0.1, Nucleated Red Blood Cells % (auto) 0.0, Erythrocyte Sedimentation Rate 45H, Anion Gap 7L, Glomerular Filtration Rate > 60.0, Calcium Level 8.4L, Total Bilirubin 0.7, Aspartate Amino Transf (AST/SGOT) 74H, Alanine Aminotransferase (ALT/SGPT) 65, Alkaline Phosphatase 115, C-Reactive Protein, Quantitative 7.86H, Total Protein 6.8, Albumin 2.7L, Albumin/Globulin Ratio 0.7 08/15/20 07:14: Total Creatine Kinase 584H 08/15/20 09:29: Prothrombin Time 15.6H, Prothromb Time International Ratio 1.22, Activated Partial Thromboplast Time 33.5, Lactic Acid Level 0.8 CBC/BMP Laboratory Tests 08/15/20 07:12 Microbiology Microbiology 08/15/20 Respiratory Virus Panel (PCR) ([facility]) - Final, Complete 08/15/20 Blood Culture, Received Pending 08/15/20 Blood Culture, Received Pending Home Medications No Active Prescriptions or Reported Meds Allergies Coded Allergies: codeine (Verified Allergy, Intermediate, face/back swelling, 05/07/19) A-FIB/CHADSVASC A-FIB History Current/History of A-Fib/PAF?: No Current PO Anticoag Therapy: No Age/Risk Factor Scoring CHADSVASC: CHADSVASC Response (Comments) Value Age Risk Factor Age < 65 years old 0 Gender Risk Factor Male 0 Hx of CHF No 0 Hx of HTN No 0 Hx of Stroke/TIA/or VTE No 0 Hx of Diabetes No 0 Hx of Vascular Disease No 0 Total 0 Treatment Treatment ordered: Other Other anticoagulant ordered: enoxaparin Nory Conrad MD Aug 15, 2020 12:20
[2020-08-15] MEDS ORDERED: ONDANSETRON 4MG/2ML VIAL IV PRN (12:35)
[2020-08-15] MEDS: CEFTAROLINE FOSAMIL 600 MG in D5W MINI-BAG PLUS 50 ML IV SCH ×2 (12:44→23:55)
[2020-08-15 14:00] VITALS: BP 150/93
[2020-08-15 15:13] LABS: AMPHETAMINES LEVEL URINE NEGATIVE (NEGATIVE); BARBITURATES URINE NEGATIVE (NEGATIVE); BENZODIAZEPINES URINE NEGATIVE (NEGATIVE); CANNABINOIDS URINE NEGATIVE (NEGATIVE); COCAINE METABOLITE URINE NEGATIVE (NEGATIVE); METHADONE URINE NEGATIVE (NEGATIVE); OPIATES URINE POSITIVE (NEGATIVE); PHENCYCLIDINE URINE NEGATIVE (NEGATIVE)
[2020-08-15 22:00] VITALS: BP_SYST 102; BP_SYST 135; BP_DIAS 60; BP_DIAS 94
[2020-08-16] MEDS: NS 1,000 ML IV SCH ×2 (00:50→08:50)
[2020-08-16 06:00] VITALS: BP 116/81
[2020-08-16 06:11] LABS: BASO # 0.1 10^3/uL (0.0-0.2); BASO % 0.8 % (0.0-1.0); EOS # 0.2 10^3/uL (0.0-0.5); EOS % 1.9 % (0.0-3.0); HEMATOCRIT 37.6 % (42.0-52.0); HEMOGLOBIN 12.9 g/dl (13.5-17.5); LYMPH # 1.5 10^3/uL (1.5-5.0); LYMPH % 16.6 % (24.0-44.0); MEAN CORPUSCULAR HEMOGLOBIN 30.4 pg (27.0-33.0); MEAN CORPUSCULAR HGB CONC 34.3 g/dl (32.0-36.5); MEAN CORPUSCULAR VOLUME 88.7 fl (80.0-96.0); MONO # 0.8 10^3/uL (0.0-0.8); MONO % 9.2 % (2.0-8.0); NEUTROPHILS # 6.3 10^3/uL (1.5-8.5); NEUTROPHILS % 69.4 % (36.0-66.0); PLATELET COUNT, AUTOMATED 353 10^3/uL (150-450); RED BLOOD COUNT 4.24 10^6/uL (4.30-6.10)
[2020-08-16 06:25] LABS: ALBUMIN 2.4 GM/DL (3.2-5.2); ALT/SGPT 54 U/L (12-78); BILIRUBIN,TOTAL 0.5 MG/DL (0.2-1.0); BLOOD UREA NITROGEN 5 MG/DL (7-18); C REACTIVE PROTEIN QUANTITATIV 6.07 MG/DL (0.00-0.30); CALCIUM LEVEL 7.8 MG/DL (8.5-10.1); CARBON DIOXIDE LEVEL 28 MEQ/L (21-32); CHLORIDE LEVEL 107 MEQ/L (98-107); CPK CREATINE PHOSPHOKINASE 149 U/L (39-308); CREATININE FOR GFR 0.57 MG/DL (0.70-1.30); GLOMERULAR FILTRATION RATE > 60.0 (>60); GLUCOSE, FASTING 119 MG/DL (70-100); POTASSIUM SERUM 3.6 MEQ/L (3.5-5.1); SODIUM LEVEL 140 MEQ/L (136-145); TOTAL PROTEIN 6.6 GM/DL (6.4-8.2)
[2020-08-16] MEDS: ENOXAPARIN 40MG/0.4ML SYRINGE (J1650 PER 10MG) SC SCH (08:46)
[2020-08-16] MEDS ORDERED: NICOTINE 21MG/24HR 1 EA TRANSDERMAL TD SCH (09:00)
[2020-08-16 09:04] LABS: ERYTHROCYTE SEDIMENTATION RATE 37 mm/hr (0-15)
--- NOTE | 2020-08-16 17:44 | DS.PDOC ---
Discharge Summary General Date of Admission Aug 15, 2020 at 08:46 Date of Discharge 08/16/20 Attending Physician: Nory Conrad MD Discharge Summary DISCHARGE SUMMARY, PATIENT LEFT AMA HISTORY OF PRESENT ILLNESS: Patient is a 30-year-old male with PMH of IV drug abuse, lower ext cellulitis who presented to [facility] emergency room for chief complaint of left lower extremity swelling, pain redness. The patient cannot clarify how long the pain has been there and how long his symptoms have been present. He is an overall poor historian who is very tearful during evaluation and when trying to get medical history. He admits to IV drug abuse, last used Urvashi 24 H ago. According to ER provider and history, the patient was seen here on 07/11/2020 and blood cultures were drawn at that time. On 07/11/20 he was given a dose of Dalvance. He later was discharged home. Blood cultures later grew streptococcus pyogenes Group A and MRSA- unknown if this was called to patient or not. The patient returns today on 08/15/2020 with increased left lower extremity cellulitis, swelling, pain. He has multiple open wounds, some are scabbed on all extremities trunk. VS showed HR 128, afebrile. WBC 14.8, improved from last ER visit of 20,000. ESR and CRP were both elevated. Sodium slightly low 135, repeat blood cultures were drawn as well as urine ordered for analysis and culture. LLE US ne g for DVT. On exam, there was no fluctuance of any anterior leg sores that would be of concern for abscess. On exam he had a noted murmur. He was agitated, tearful at times- concerning for withdrawl. He would not respond as to whether he had chest pain, shortness of breath, n/v/d, fevers but did admit to being cold and having increased LLE pain, 10/10 on pain scale. Patient was later admitted for LLE cellulitis, hx of Strep pyogenes Group A and MRSA bacteremia, sepsis requiring inpatient treatment. Note: Patient was falling asleep during my evaluation and did not respond to many of my questions, overall poor historian. HOSPITAL COURSE: No acute events with patient overnight. This AM patient insisted on leaving at 9AM, before I could examine him. He was told this is risky with current infection, he insisted and left AMA. PAST MEDICAL HISTORY: IV drug abuse PAST SURGICAL HISTORY: None FAMILY HISTORY: Unable to obtain due to mental status SOCIAL HISTORY: From prior histories: smokes a pack of cigarettes a day for at least 15 years, no alcohol use, IV drug user. Drug of choice is opiates. History of cocaine, marijuana, and heroin use. ALLERGIES: Please see below. HOME MEDICATIONS: Please see below. PHYSICAL EXAMINATION: Unable to be performed as patient left before being examined LABORATORY DATA: Please see below IMAGING: LLE US: Neg for DVT ASSESSMENT: 30-year-old male with past mental history of IV drug abuse who presented to [facility] emergency room for chief complaint of left lower extremity swelling, pain redness admitted for LLE cellulitis, hx of Strep pyogenes Group A and MRSA bacteremia, sepsis requiring inpatient treatment. Patient left AMA on 08/16/20. DIAGNOSES AT TIME OF LEAVING AMA: LLE cellulitis likely 2/2 to infection from LE wounds Bacteremia, Streptococcus pyogenes Group A. R/o endocarditis Polysubstance abuse with s/s of withdrawl DISPOSITION: Pt left AMA this AM. TIME SPENT ON DISCHARGE: 35minutes. Vital Signs/I&Os Vital Signs Date Time Temp Pulse Resp B/P (MAP) Pulse Ox O2 Delivery O2 Flow Rate FiO2 08/16/20 06:00 98.3 82 17 116/81 (93) 92 Room Air I&O- Last 24 Hours up to 6 AM 08/16/20 05:59 Intake Total 3450 ml Output Total 2375 ml Balance 1075 ml Laboratory Data Labs 24H Laboratory Tests 2 08/16/20 05:49: Immature Granulocyte % (Auto) 2.1, Neutrophils (%) (Auto) 69.4H, Lymphocytes (%) (Auto) 16.6L, Monocytes (%) (Auto) 9.2H, Eosinophils (%) (Auto) 1.9, Basophils (%) (Auto) 0.8, Neutrophils # (Auto) 6.3, Lymphocytes # (Auto) 1.5, Monocytes # (Auto) 0.8, Eosinophils # (Auto) 0.2, Basophils # (Auto) 0.1, Nucleated Red Blood Cells % (auto) 0.0, Erythrocyte Sedimentation Rate 37H, Anion Gap 5L, Glomerular Filtration Rate > 60.0, Calcium Level 7.8L, Total Bilirubin 0.5, Aspartate Amino Transf (AST/SGOT) 52H, Alanine Aminotransferase (ALT/SGPT) 54, Alkaline Phosphatase 99, Total Creatine Kinase 149, C-Reactive Protein, Quantitative 6.07H, Total Protein 6.6, Albumin 2.4L, Albumin/Globulin Ratio 0.6 CBC/BMP Laboratory Tests 08/16/20 05:49 Microbiology Microbiology 08/15/20 Respiratory Virus Panel (PCR) ([facility]) - Final, Complete 08/15/20 Blood Culture - Preliminary, Resulted No growth after 24 hours . All specim... 08/15/20 Blood Culture - Preliminary, Resulted No growth after 24 hours . All specim... Discharge Medications No Active Prescriptions or Reported Meds Allergies Coded Allergies: codeine (Verified Allergy, Intermediate, face/back swelling, 05/07/19) Nory Conrad MD Aug 16, 2020 17:44
--- NOTE | 2020-08-19 08:37 | ECHO ---
DATE OF PROCEDURE: 08/15/2020 Age: 30 Gender: Male Height: 76 inches Weight: 220 pounds Body surface area: 2.31 m2 PATIENT LOCATION: Inpatient [address] [place] [address], Room 4218. REFERRING PHYSICIAN: Nory Conrad M.D. INDICATION: Endocarditis. MEASUREMENTS: 2D Measurements: RV 4.6 cm LV 5.2 cm Septum 1.1 cm Posterior wall 1.0 cm Aortic Root 3.8 cm LA 3.6 cm LVEF 75% Doppler Measurements: AV 1.58 m/s LVOT 1.38 m/s LVOT diameter 2.5 cm MV-E 90, A 85, E/A ratio 1 Early mitral deceleration time 209 msec E prime medial 13.5, A prime medial 10, E prime lateral 12.1 Average E/E prime ratio 7/PCWP 10.6 mmHg PV 1.1 m/s Pulmonary artery acceleration time 135 msec RVSP 34 mmHg IVC 2.8 cm COMMENTS: Normal sinus rhythm without intraventricular conduction disturbance. M-mode and two-dimensional echocardiography was performed with pulse, continuous wave, color flow, and tissue Doppler studies. Normal left ventricular size and wall thickness with hyperkinetic wall motion. Normal left atrial size and Doppler assessment of LV diastolic function and estimated mean left atrial pressure. Mildly dilated right heart chambers with normal wall motion and Doppler evidence of pulmonary artery pressure upper limits of normal to borderline increased. Dilated IVC with reduced respiratory collapse not uncommonly found in young athletic males not reflecting right heart failure. Normal aortic root size. Normal appearing aortic valve with normal cusp separation yet trace to very mild aortic insufficiency. Normal appearing mitral valve apparatus and leaflet with no posterior systolic buckling, but mild insufficiency. Normal appearing tricuspid valve with mild regurgitation. No apparent intracardiac mass or vegetation visualized. No pericardial effusion. MTDD
== END 2020-08-16 09:32 | disposition left against medical advice (07) | DRG 383 ==
LOC: M ED 22:34 → EEVIPCON 22:34 → M ED INP 08-15 08:46 → ENRESERV 08-15 09:35 → M MSPAV 08-15 10:22
PROVIDERS: ADMIT Internal Medicine; ATTEND Internal Medicine
DX: L03.116 Cellulitis of left lower limb (principal); R78.81 Bacteremia; F17.210 Nicotine dependence, cigarettes, uncomplicated; F11.13 Opioid abuse with withdrawal

== ENCOUNTER 2020-08-19 12:33 | Emergency (ER) | payer OTHER ==
[~2020-08-19] VITALS: Ht 193 cm; Wt 98.3 kg
[2020-08-19] MEDS ORDERED: DOXY100C37 PO (14:32)
[2020-08-19] MEDS ORDERED: CEFD300CAP PO (14:32)
[2020-08-19 15:13] VITALS: BP 138/88
== END 2020-08-19 15:14 | disposition left against medical advice (07) ==
LOC: M ED 12:33
DX: L03.115 Cellulitis of right lower limb (principal); L03.116 Cellulitis of left lower limb; F15.10 Other stimulant abuse, uncomplicated; B19.20 Unspecified viral hepatitis C without hepatic coma; Z88.5 Allergy status to narcotic agent; F17.210 Nicotine dependence, cigarettes, uncomplicated

== ENCOUNTER 2020-11-23 07:41 | Emergency (ER) | payer OTHER ==
[~2020-11-23 07:41] MED LIST changes: +CEFD300CAP PO; +CLIN-250; -CLIN300C6; +DOXY-443 PO; -IBUP200T45 PO; +IBUP200T46 PO
== END 2020-11-23 07:48 | disposition left against medical advice (07) ==
LOC: M ED 07:41
DX: Z53.29 Procedure and treatment not carried out because of patient's decision for other reasons (principal)

== ENCOUNTER 2020-11-25 14:37 | Emergency (ER) | payer OTHER ==
[~2020-11-25 14:37] MED LIST changes: -CLIN-250; +CLIN300C6; -DOXY-443 PO; +DOXY1CAP62 PO; +IBUP200T45 PO; -IBUP200T46 PO
[2020-11-25 14:46] VITALS: BP 131/100
[2020-11-25] MEDS ORDERED: HALOPERIDOL 5MG/ML VIAL (J1630 PER 1) IV ONE (14:55)
[2020-11-25] MEDS ORDERED: KETOROLAC 30 MG/ML 1ML VIAL IV ONE (14:55)
[2020-11-25] MEDS ORDERED: NS 1,000 ML IV ONE (14:55)
[2020-11-25 15:31] LABS: HEMATOCRIT 35.2 % (42.0-52.0); HEMOGLOBIN 13.1 g/dl (13.5-17.5); MEAN CORPUSCULAR HEMOGLOBIN 31.2 pg (27.0-33.0); MEAN CORPUSCULAR VOLUME 83.8 fl (80.0-96.0); PLATELET COUNT, AUTOMATED 270 10^3/uL (150-450); WHITE BLOOD COUNT 11.8 10^3/uL (4.0-10.0)
[2020-11-25 15:32] LABS: MEAN CORPUSCULAR HGB CONC 37.2 g/dl (32.0-36.5)
[2020-11-25 15:55] LABS: ACETAMINOPHEN LEVEL < 2.0 UG/ML (10.0-30.0); ALBUMIN 4.1 GM/DL (3.2-5.2); ALT/SGPT 196 U/L (12-78); BILIRUBIN,DIRECT 0.7 MG/DL (0.0-0.2); BILIRUBIN,TOTAL 2.3 MG/DL (0.2-1.0); BLOOD UREA NITROGEN 19 MG/DL (7-18); CALCIUM LEVEL 8.5 MG/DL (8.5-10.1); CARBON DIOXIDE LEVEL 27 MEQ/L (21-32); CHLORIDE LEVEL 99 MEQ/L (98-107); CPK CREATINE PHOSPHOKINASE 3215 U/L (39-308); CREATININE FOR GFR 1.08 MG/DL (0.70-1.30); ETHYL ALCOHOL (ETHANOL) < 0.003 % (0.000-0.010); GLOMERULAR FILTRATION RATE > 60.0 (>60); GLUCOSE, FASTING 86 MG/DL (70-100); POTASSIUM SERUM 3.4 MEQ/L (3.5-5.1); SALICYLATE LEVEL < 1.7 MG/DL (5.0-30.0); SODIUM LEVEL 135 MEQ/L (136-145); THYROID STIMULATING HORMONE 0.753 uIU/ML (0.358-3.740); TOTAL PROTEIN 7.3 GM/DL (6.4-8.2)
== END 2020-11-25 16:01 | disposition left against medical advice (07) ==
LOC: EDBD 14:37 → M ED 14:37
DX: F19.10 Other psychoactive substance abuse, uncomplicated (principal); Z53.9 Procedure and treatment not carried out, unspecified reason; B19.20 Unspecified viral hepatitis C without hepatic coma
CPT/HCPCS: 80048; 80076; 80143; 82077; 82550; 84443; 85027; 96374; 96375; 99283; J1630; J1885

== ENCOUNTER 2020-11-29 02:09 | Emergency (ER) | payer OTHER ==
[~2020-11-29] VITALS: Ht 193 cm; Wt 101.1 kg
[2020-11-29] MEDS ORDERED: OLANZapine ORAL DISINTEGRATING TAB 5MG PO ONE (02:25)
[2020-11-29 03:32] LABS: ACETAMINOPHEN LEVEL < 2.0 UG/ML (10.0-30.0); ALBUMIN 3.8 GM/DL (3.2-5.2); ALT/SGPT 170 U/L (12-78); BILIRUBIN,DIRECT 0.4 MG/DL (0.0-0.2); BILIRUBIN,TOTAL 1.1 MG/DL (0.2-1.0); BLOOD UREA NITROGEN 14 MG/DL (7-18); CALCIUM LEVEL 8.5 MG/DL (8.5-10.1); CARBON DIOXIDE LEVEL 29 MEQ/L (21-32); CHLORIDE LEVEL 101 MEQ/L (98-107); CREATININE FOR GFR 1.35 MG/DL (0.70-1.30); ETHYL ALCOHOL (ETHANOL) < 0.003 % (0.000-0.010); GLOMERULAR FILTRATION RATE > 60.0 (>60); GLUCOSE, FASTING 124 MG/DL (70-100); HEMATOCRIT 36.2 % (42.0-52.0); HEMOGLOBIN 13.2 g/dl (13.5-17.5); MEAN CORPUSCULAR HEMOGLOBIN 31.7 pg (27.0-33.0); MEAN CORPUSCULAR HGB CONC 36.5 g/dl (32.0-36.5); PLATELET COUNT, AUTOMATED 296 10^3/uL (150-450); POTASSIUM SERUM 3.6 MEQ/L (3.5-5.1); RED BLOOD COUNT 4.16 10^6/uL (4.30-6.10); SALICYLATE LEVEL < 1.7 MG/DL (5.0-30.0); SODIUM LEVEL 139 MEQ/L (136-145); TOTAL PROTEIN 7.5 GM/DL (6.4-8.2); WHITE BLOOD COUNT 10.1 10^3/uL (4.0-10.0)
[2020-11-29 04:03] LABS: AMPHETAMINES LEVEL URINE POSITIVE (NEGATIVE); BARBITURATES URINE NEGATIVE (NEGATIVE); BENZODIAZEPINES URINE NEGATIVE (NEGATIVE); CANNABINOIDS URINE POSITIVE (NEGATIVE); COCAINE METABOLITE URINE POSITIVE (NEGATIVE); METHADONE URINE NEGATIVE (NEGATIVE); OPIATES URINE NEGATIVE (NEGATIVE); PHENCYCLIDINE URINE NEGATIVE (NEGATIVE)
[2020-11-29 09:09] VITALS: BP 147/80
== END 2020-11-29 09:15 | disposition home or self-care (01) ==
LOC: M ED 02:09
DX: F15.10 Other stimulant abuse, uncomplicated (principal); B19.20 Unspecified viral hepatitis C without hepatic coma; Z88.5 Allergy status to narcotic agent

== ENCOUNTER 2020-12-09 07:19 | Emergency (ER) | payer OTHER ==
[~2020-12-09] VITALS: Ht 193 cm; Wt 108.7 kg
[2020-12-09] MEDS ORDERED: VANCOMYCIN HCL 2,000 MG in IV FLUID PLACE HOLDER 1 EA IV ONE (09:40)
[2020-12-09] MEDS ORDERED: VANCOMYCIN HCL 1,000 MG, VIAL MATE ADAPTER 1 EACH in NS 250 ML IV ONE ×6 (10:00)
[2020-12-09 10:11] LABS: BASO # 0.1 10^3/uL (0.0-0.2); BASO % 0.4 % (0.0-1.0); EOS # 0.2 10^3/uL (0.0-0.5); EOS % 1.2 % (0.0-3.0); HEMATOCRIT 37.5 % (42.0-52.0); HEMOGLOBIN 13.3 g/dl (13.5-17.5); LYMPH # 1.9 10^3/uL (1.5-5.0); LYMPH % 14.6 % (24.0-44.0); MEAN CORPUSCULAR HEMOGLOBIN 31.4 pg (27.0-33.0); MEAN CORPUSCULAR HGB CONC 35.5 g/dl (32.0-36.5); MEAN CORPUSCULAR VOLUME 88.4 fl (80.0-96.0); MONO % 7.4 % (2.0-8.0); NEUTROPHILS # 10.1 10^3/uL (1.5-8.5); NEUTROPHILS % 75.9 % (36.0-66.0); PLATELET COUNT, AUTOMATED 408 10^3/uL (150-450); RED BLOOD COUNT 4.24 10^6/uL (4.30-6.10); WHITE BLOOD COUNT 13.3 10^3/uL (4.0-10.0)
--- NOTE | 2020-12-09 10:13 | REP ---
INDICATION: IVDA, swollen area, r/o FB COMPARISON: None. TECHNIQUE: AP and lateral left forearm. FINDINGS: There is no evidence of acute fracture, dislocation, or intrinsic bone disease. IMPRESSION: No fracture or dislocation. <Electronically signed by Jean-Paul Potts > 12/09/20 1014
[2020-12-09 11:23] VITALS: BP 146/94
[2020-12-09 11:37] LABS: ERYTHROCYTE SEDIMENTATION RATE 47 mm/hr (0-15)
[2020-12-09] MEDS ORDERED: CLEO300C2 PO (11:38)
== END 2020-12-09 13:33 | disposition home or self-care (01) ==
LOC: M ED 07:19
DX: S81.801A Unspecified open wound, right lower leg, initial encounter (principal); S81.802A Unspecified open wound, left lower leg, initial encounter; S71.101A Unspecified open wound, right thigh, initial encounter; S71.102A Unspecified open wound, left thigh, initial encounter; S41.101A Unspecified open wound of right upper arm, initial encounter; S41.102A Unspecified open wound of left upper arm, initial encounter; S51.801A Unspecified open wound of right forearm, initial encounter; S51.802A Unspecified open wound of left forearm, initial encounter; S21.201A Unspecified open wound of right back wall of thorax without penetration into thoracic cavity, initial encounter; S21.202A Unspecified open wound of left back wall of thorax without penetration into thoracic cavity, initial encounter; X58.XXXA Exposure to other specified factors, initial encounter; Y92.89 Other specified places as the place of occurrence of the external cause; Z86.14 Personal history of Methicillin resistant Staphylococcus aureus infection; M79.89 Other specified soft tissue disorders; B19.20 Unspecified viral hepatitis C without hepatic coma; F15.10 Other stimulant abuse, uncomplicated; F11.10 Opioid abuse, uncomplicated; F17.200 Nicotine dependence, unspecified, uncomplicated; Z88.5 Allergy status to narcotic agent
CPT/HCPCS: 73090; 80047; 85025; 85652; 86140; 87040; 96365; 96366; 99283; J3370